=== PATIENT | female | born 1965 | race American Indian/Alaskan Native ===

== ENCOUNTER 2017-07-11 17:14 | Emergency (ER) | payer MEDICAID ==
[2015-05-21 12:21] VITALS: BMI 29.9
--- NOTE | 2017-07-11 18:11 | C.PDOC ---
History Of Present Illness 52 y/o female c/o pain to the left knee, left hip, left shoulder, lower back, and left side of the head for the past 2 days. Patient notes that while walking her foot was caught in a hole, tripped, then fell. Patient notes at first the pain was not as bad, but at this time the pain is unbearable, patient is currently crying in the ER. Patient denies weakness, numbness, or urinary symptoms. Time Seen by Provider: 07/11/17 18:04 Chief Complaint (Nursing): Lower Extremity Problem/Injury History Per: Patient History/Exam Limitations: no limitations Onset/Duration Of Symptoms: Days Current Symptoms Are (Timing): Still Present Severity: Moderate Recent travel outside of the [place]: No Additional History Per: Patient Past Medical History Reviewed: Historical Data, Nursing Documentation, Vital Signs Vital Signs: Last Vital Signs Temp 97.9 F 07/11/17 17:38 Pulse 60 07/11/17 19:34 Resp 18 07/11/17 19:34 BP 115/77 07/11/17 19:34 Pulse Ox 98 07/11/17 20:48 - Medical History PMH: Anxiety, Arthritis, Asthma, HTN, Hypercholesterolemia, Malignancy (THROAT CANCER) Denies: Chronic Kidney Disease Surgical History: Cholecystectomy - [facility] Procedures CLOSED [ENDOSCOPIC] BIOPSY OF LARYNX (01/24/14) CLOSED [NEEDLE] BIOPSY OF TONGUE (01/24/14) INSERTION OF TOTALLY IMPLANTABLE VASC ACCESS DEVIC (10/03/13) TEMPORARY TRACHEOSTOMY (08/23/13) THORAX SFT TISS XRAY NEC (10/03/13) Family History: States: Unknown Family Hx - Social History Hx Tobacco Use: Yes Hx Alcohol Use: No Hx Substance Use: No - Immunization History Hx Tetanus Toxoid Vaccination: No Hx Influenza Vaccination: No Hx Pneumococcal Vaccination: No Review Of Systems Except As Marked, All Systems Reviewed And Found Negative. Genitourinary: Negative for: Frequency, Incontinence Musculoskeletal: Positive for: Shoulder Pain (left), Back Pain (lower), Leg Pain (left knee), Other (left hip and left side of head) Neurological: Negative for: Weakness, Numbness Physical Exam - Physical Exam Appears: Non-toxic, In Acute Distress (Crying due to pain) Skin: Warm, Dry Head: Normacephalic, Tenderness (Left side of the head) Back: No Vertebral Tenderness, Paraspinal Tenderness (lumbar area) Extremity: Tenderness (Left knee, left hip, left shoulder), Capillary Refill (< 2secs), No Deformity, Other (healing abrasion to the left knee) Neurological/Psych: Oriented x3 Gait: Steady ED Course And Treatment O2 Sat by Pulse Oximetry: 98 Pulse Ox Interpretation: Normal - CT Scan/US Head CT Other Rad Studies (CT/US): Read By Radiologist, Radiology Report Reviewed CT/US Interpretation: Accession No. : [id number]. Patient Name / ID : LUDMILA VILLALOBOS / [id number]. Exam Date : 07/11/2017 19:01:22 ( Approved ). Study Comment : Sex / Age : F / 52Y. Creator : Harvinder Laguerre MD. Dictator : Spooling Operator : Prosecuting Attorney : Harvinder Laguerre MD. Approver2 : Report Date : 07/11/2017 19:51:00. My Comment : . [facility] Division of Radiology. [address] [place] [address]. Tel. no. . . . Patient Name: GRISELDA KEYS . Pt. Address: [address] [place] [address]. Rec #: [id number]. [place] [address]: Jaimie Rdz PA-C. Pt Order Location: [facility] : 1965 Female Age: 52 Order #: [id number]. Reason for exam: fall. . . . . . CT Scan. . . HEAD W/O CONTRAST Exam Date: 07/11/17. . This imaging exam was performed at [facility]. EXAM: CT Head Without Intravenous Contrast. . CLINICAL HISTORY: 52 years old, female; Injury or trauma; Fall; Initial encounter; Concussion /. head injury; Without loss of consciousness; Injury date: 07/09/17. . TECHNIQUE: Axial computed tomography images of the head/brain without intravenous. contrast. All CT scans at this facility use one or more dose reduction. techniques, viz.: automated exposure control; ma/ kV adjustment per patient size. (including targeted exams where dose is matched to indication; i.e. head); or. iterative reconstruction technique. . COMPARISON: No relevant prior studies available. . FINDINGS: Brain: No intracranial hemorrhage. No mass. No edema. Ventricles: No hydrocephalus. Bones/joints: No acute fracture. Soft tissues: Unremarkable. Sinuses: Scattered minimal to mild mucosal thickening. Mastoid air cells: No mastoid effusion. Orbits: Unremarkable as visualized. . IMPRESSION: 1. No intracranial hemorrhage. 2. Incidental/non-acute findings are described above. . Dictated By: Harvinder Laguerre MD. Dictated Date/Time: 07/11/171950. Signed By: Harvinder Laguerre MD. Date Signed: 07/11/171950. Transcribed By: [facility]. Transcribe Date/Time: 07/11/171950 Progress Note: TD IM, Percocet po ordered. XRAY of the left knee, left hip, left shoulder, and LS spine, CT Head were done in ED and w/o acute finding. On re-evaluation patient is ambulatory, in no distress, verbalized improvement of pain and is stable to be d/c home with PMD follow up. Disposition - Disposition Disposition: HOME/ ROUTINE Disposition Time: 20:45 Condition: STABLE Additional Instructions: Follow up with your PMD within 1-2 days. Return to ED if feel worse. Prescriptions: oxyCODONE/Acetaminophen [Percocet 5/325 mg Tab] 1 tab PO QID PRN #20 tab PRN Reason: Pain Instructions: Head Injury (ED), Contusion in Adults (ED) Forms: [facility] (Mauritanian) - Clinical Impression Clinical Impression: Multiple contusions, Minor head injury - Scribe Statement The provider has reviewed the documentation as recorded by the Scribe Palomo hawthorne All medical record entries made by the Scribe were at my direction and personally dictated by me. I have reviewed the chart and agree that the record accurately reflects my personal performance of the history, physical exam, medical decision making, and the department course for this patient. I have also personally directed, reviewed, and agree with the discharge instructions and disposition.
[2017-07-11 18:15] VITALS: RESP 18; TEMP 97.9
[2017-07-11] MEDS ORDERED: Oxycodone/Acetaminophen 5/325 mg Tab PO STA (18:51)
[2017-07-11] MEDS ORDERED: Oxycodone/Acetaminophen 5/325 mg Tab ONE (18:58)
[2017-07-11 19:34] VITALS: BP 115/77; PULSE 60
--- NOTE | 2017-07-11 19:51 | CT ---
EXAM: CT Head Without Intravenous Contrast CLINICAL HISTORY: 52 years old, female; Injury or trauma; Fall; Initial encounter; Concussion / head injury; Without loss of consciousness; Injury date: 07/09/17 TECHNIQUE: Axial computed tomography images of the head/brain without intravenous contrast. All CT scans at this facility use one or more dose reduction techniques, viz.: automated exposure control; ma/kV adjustment per patient size (including targeted exams where dose is matched to indication; i.e. head); or iterative reconstruction technique. COMPARISON: No relevant prior studies available. FINDINGS: Brain: No intracranial hemorrhage. No mass. No edema. Ventricles: No hydrocephalus. Bones/joints: No acute fracture. Soft tissues: Unremarkable. Sinuses: Scattered minimal to mild mucosal thickening. Mastoid air cells: No mastoid effusion. Orbits: Unremarkable as visualized. IMPRESSION: 1. No intracranial hemorrhage. 2. Incidental/non-acute findings are described above.
[2017-07-11 20:48] VITALS: O2SAT 98
--- NOTE | 2017-07-12 14:31 | RAD ---
PROCEDURE: Left shoulder dated 07/11/2017. HISTORY: fall COMPARISON: Comparison made with CT scan chest dated 01/24/2014. FINDINGS: BONES: No evidence of acute displaced fracture nor dislocation. The osseous structures appear intact. JOINTS: Very minor degenerative changes left acromioclavicular and glenohumeral joints. SOFT TISSUES: There are no abnormal soft tissue calcifications. No radiopaque foreign body seen. OTHER FINDINGS: None. IMPRESSION: No evidence of acute displaced fracture nor dislocation. Minor DJD.
--- NOTE | 2017-07-12 16:04 | RAD ---
PROCEDURE: Left Hip X-ray Radiographs. HISTORY: fall COMPARISON: None. FINDINGS: BONES: No evidence of acute displaced fracture nor dislocation. The osseous structures appear intact. . JOINTS: Degenerative osteoarthritis both hip joints right greater than left. Enthesophyte formation seen along the lateral margins of the pelvis and superior margins of the greater trochanters. Ormal. SOFT TISSUES: Multiple tiny pelvic calcifications are present likely representing calcified pelvic phleboliths. OTHER FINDINGS: Degenerative spondylosis lumbosacral spine IMPRESSION: No acute displaced fracture nor dislocation. DJD both hip joints right greater than left
--- NOTE | 2017-07-12 16:05 | RAD ---
PROCEDURE: Left Knee Radiographs. HISTORY: Pain. COMPARISON: None. FINDINGS: BONES: No evidence of acute displaced fracture nor dislocation. . JOINTS: Joint spaces relatively preserved. Prominent enthesophyte seen arising from the anterior superior margin of the patella. There may also be tiny anterior inferior patella enthesophyte formation as well Suspect trace suprapatellar joint effusion JOINT EFFUSION: None. OTHER FINDINGS: None. IMPRESSION: No evidence of acute displaced fracture nor dislocation. Questionable trace joint effusion. Patella enthesophyte formation as above
--- NOTE | 2017-07-12 16:08 | RAD ---
PROCEDURE: Radiographs of the Lumbar Spine. HISTORY: Status post fall COMPARISON: No prior. FINDINGS: BONES: No evidence of acute compression fractures no retropulsed fragments. Vertebral bodies exhibit relatively normal stature. Vertebral bodies and facets normally aligned. DISC SPACES: Minor multilevel disc space narrowing more so along the posterior disc margins. Small marginal anterolateral osteophyte formation. Facets are hypertrophic L5-S1 through the L2-L3 levels in decreasing order of severity. Note also made of mild degenerative spondylosis of the lower thoracic spine. OTHER FINDINGS: Distended loops of bowel of present. Clinical correlation recommended. Metallic clips right upper quadrant of the abdomen consistent with prior cholecystectomy. IMPRESSION: No acute fractures. Mild multilevel degenerative spondylosis. Distended loops of bowel. Clinical correlation recommended.
== END 2017-07-11 20:54 | disposition home or self-care (01) ==
LOC: C.ER 17:14
DX: S09.90XA Unspecified injury of head, initial encounter (principal); S80.02XA Contusion of left knee, initial encounter; W01.0XXA Fall on same level from slipping, tripping and stumbling without subsequent striking against object, initial encounter; Y92.89 Other specified places as the place of occurrence of the external cause

== ENCOUNTER 2017-08-10 17:49 | Inpatient (IN) | payer MEDICAID ==
[2017-08-10 18:00] VITALS: BMI 28.1
[2017-08-10] MEDS ORDERED: Sodium Chloride 0.9% 1,000 ML IV STA (18:10)
--- NOTE | 2017-08-10 18:12 | C.PDOC ---
History Of Present Illness 52 y/o F c PMHx HTN, throat cancer s/p chemo/radiation, arthritis p/w abdominal pain x 1 week. Pain is diffuse, severe, intermittent, nonradiating, associated with vomiting and diarrhea. States has seen blood in vomit on initial days and black stool. Also reports subjective fever for initial days, now gone. Denies chest pain, dyspnea, dysuria. Time Seen by Provider: 08/10/17 18:05 Chief Complaint (Nursing): GI Problem Past Medical History Vital Signs: Last Vital Signs Temp 98.6 F 08/10/17 18:00 Pulse 96 H 08/10/17 20:21 Resp 18 08/10/17 20:21 BP 171/82 H 08/10/17 20:21 Pulse Ox 98 08/10/17 21:34 - Medical History PMH: Anxiety, Arthritis, Asthma, Depression, HTN, Hypercholesterolemia, Malignancy (THROAT CANCER) Denies: Chronic Kidney Disease Surgical History: Cholecystectomy - [facility] Procedures CLOSED [ENDOSCOPIC] BIOPSY OF LARYNX (01/24/14) CLOSED [NEEDLE] BIOPSY OF TONGUE (01/24/14) INSERTION OF TOTALLY IMPLANTABLE VASC ACCESS DEVIC (10/03/13) TEMPORARY TRACHEOSTOMY (08/23/13) THORAX SFT TISS XRAY NEC (10/03/13) Family History: States: No Known Family Hx - Social History Hx Tobacco Use: Yes Hx Alcohol Use: No Hx Substance Use: No - Immunization History Hx Tetanus Toxoid Vaccination: Yes Hx Influenza Vaccination: Yes Hx Pneumococcal Vaccination: Yes Review Of Systems Except As Marked, All Systems Reviewed And Found Negative. Cardiovascular: Negative for: Chest Pain Respiratory: Negative for: Shortness of Breath Physical Exam - Physical Exam Additional Physical Exam Comments: Gen: No acute distress. Head: Normocephalic, atraumatic. Eyes: PERRL. ENT: Moist mucous membranes. Neck: Supple. Chest: No tenderness. CV: Regular rate. Radial pulses 2+ bilaterally. Resp: Clear to auscultation bilaterally. Abd: Soft, Diffuse tenderness. Rectal: Dark stool, hemorrhoids, non robust Extremities: No swelling or tenderness. Skin: No rash. Neuro: Alert, no focal deficit. ED Course And Treatment - Laboratory Results Result Diagrams: 08/10/17 21:29 08/10/17 18:51 O2 Sat by Pulse Oximetry: 98 Medical Decision Making Medical Decision Making: EKG NSR 75 bpm, no ST elevations, T wave inversions. CXR no acute disease. IMPRESSION: 1. Mild wall thickening involving the descending and rectosigmoid colon. Correlate for infectious or inflammatory enteritis. 2. Left lower lobe pulmonary nodule measuring 4 mm. For low-risk patients, no follow-up is necessary. For high-risk patients (smoking history or other known risk factors) an optional chest CT at 12 months could be performed. Disposition Discussed With DrPato: Clark Renee Doctor Will See Patient In The: ED - Disposition Disposition: HOSPITALIZED Disposition Time: 21:49 Condition: GUARDED Forms: [facility] (Yakut) - Clinical Impression Clinical Impression: Gastrointestinal hemorrhage
[2017-08-10 19:07] LABS: ALKALINE PHOSPHATASE 79 U/L (38-126); ALT/SGPT 24 U/L (9-52); AST/SGOT 14 U/L (14-36); BILIRUBIN,TOTAL 0.6 mg/dL (0.2-1.3); BLOOD UREA NITROGEN 10 mg/dL (7-17); CALCIUM 8.1 mg/dl (8.6-10.4); CARBON DIOXIDE 28 mmol/L (22-30); CHLORIDE 100 mmol/L (98-107); GFR AFRICAN-AMERICAN > 60; GLUCOSE,RANDOM 94 mg/dL (65-105); POTASSIUM 3.1 mmol/L (3.6-5.2); SODIUM 134 mmol/L (132-148); TOTAL PROTEIN 6.7 g/dL (6.3-8.3)
[2017-08-10] MEDS ORDERED: Morphine 4 MG/ML VIAL ONE (19:08)
[2017-08-10] MEDS ORDERED: Sodium Chloride 0.9% 1,000 ML ONE ×2 (19:08→22:31)
[2017-08-10 19:09] LABS: RBC URINE 15 /hpf (0-3); URINE BACTERIA RARE (<OCC); URINE BILIRUBIN NEGATIVE (NEGATIVE); URINE BLOOD 1+ (NEGATIVE); URINE COLOR Yellow (YELLOW); URINE GLUCOSE (UA) NORMAL (Normal); URINE KETONE TRACE mg/dL (NEGATIVE); URINE LEUKOCYTE ESTERASE NEG Leu/uL (Negative); URINE PROTEIN NEGATIVE (NEGATIVE); WBC URINE 1 /hpf (0-5)
[2017-08-10] MEDS ORDERED: Iodixanol 320 MG/ML 100 ML BOTTLE IV ONE (20:14)
[2017-08-10 21:35] LABS: BASO # 0.1 K/uL (0.0-0.2); BASO % 1.4 % (0.0-2.0); EOS % 0.3 % (0.0-4.0); HEMATOCRIT 34.4 % (34.0-47.0); LYMPH # 0.9 K/uL (1.0-4.3); LYMPH % 11.3 % (20.0-40.0); MEAN CELL VOLUME 85.7 fL (81.0-99.0); MEAN CORPUSCULAR HGB CONC 33.9 g/dL (33.0-37.0); MEAN PLATELET VOLUME 6.9 fL (7.2-11.7); MONO # 0.7 K/uL (0.0-0.8); MONO % 8.9 % (0.0-10.0); RED CELL DISTRIBUTION WIDTH 13.7 % (11.5-14.5); WHITE BLOOD COUNT 7.7 K/uL (4.8-10.8)
[2017-08-10] MEDS ORDERED: Sodium Chloride 0.9% 1,000 ML IV SCH (22:30)
[2017-08-10] MEDS ORDERED: Albuterol 0.083% Inhal Sol (2.5 mg/3 mL) UD IH PRN (23:30)
[2017-08-10] MEDS ORDERED: Albuterol HFA 90 mcg/actuation (8 g) IH PRN (23:30)
--- NOTE | 2017-08-10 23:49 | CP.PCM.HP ---
Addendum entered and electronically signed by Kwaku Peña DO 08/10/17 23: 54: Infectious Colitis * CT - F/U * Cipro 400 IV Q12 * Metro 500 IV Q8 * Morphine 2 IV Q4 * Zofran 4 IV Q6 * Protonix 40 IV QD * NS @ 120 * Blood culture - F/U HTN * Metoprolol 25 PO QD Hypokalemia * KCl IV 20 1x Anxiety * Zoloft 25 PO QD R. Calf Pain * F/U venous doppler Original Note: <Kwaku Peña - Last Filed: 08/10/17 23:44> History of Present Illness - History of Present Illness History of Present Illness: Medicine H/P CC: Abdominal pain, N/V, Blood in stool and vomit HPI: Patient is a 52F with a PMH of throat cancer, HTN comes to the ED with a CC of abdominal pain for 1 weeks associated with vomiting and diarrhea. She states that she has noted blood in the vomit as well as the stool. She has had multiple episodes daily. It has become progressively worse in the last week. She also feels dizzy. She has not been able to eat in over 1 week. She has been able to keep down fluids. She has severe crampy belly pain. She is also complaining of fever, chills and diaphoresis. Denies Chest pain and SOB. Never had a colonoscopy. Denies sick contacts or recent travel. Has not eaten any food that is abnormal for her. PMD: Ira ROS: Per HPI PMH: HTN, Throat cancer PSH: Port, lap eder, trach FH: Dad/sister/brother of throat cancer; Mom had HTN/stroke SH: 1pack year smoking history. No alcohol, no drugs All: PCN, Dark chocolate, mushrooms Present on Admission - Present on Admission Any Indicators Present on Admission: No Review of Systems - Review of Systems Review of Systems: per hpi Past Patient History - Past Medical History & Family History Past Medical History?: Yes - Past Social History Smoking Status: Light Smoker < 10 Cigarettes Daily - CARDIAC Hx Hypercholesterolemia: Yes Hx Hypertension: Yes - PULMONARY Hx Asthma: Yes - NEUROLOGICAL Hx Neurological Disorder: No - HEENT Hx HEENT Problems: Yes (Throat ca- removed) - RENAL Hx Chronic Kidney Disease: No - ENDOCRINE/METABOLIC Hx Endocrine Disorders: No - HEMATOLOGICAL/ONCOLOGICAL Hx Blood Disorders: Yes Hx Cancer: Yes (Throat 2014) - INTEGUMENTARY Other/Comment: Tracheostoma - MUSCULOSKELETAL/RHEUMATOLOGICAL Hx Arthritis: Yes - GASTROINTESTINAL Hx Gastrointestinal Disorders: Yes Hx Gastroesophageal Reflux: Yes - GENITOURINARY/GYNECOLOGICAL Hx Genitourinary Disorders: No - PSYCHIATRIC Hx Anxiety: Yes Hx Depression: Yes Hx Substance Use: No - SURGICAL HISTORY Hx Cholecystectomy: Yes - ANESTHESIA Hx Anesthesia: Yes Hx Anesthesia Reactions: No Hx Malignant Hyperthermia: No Meds Allergies/Adverse Reactions: Allergies Allergy/AdvReac Type Severity Reaction Status Date / Time shellfish derived Allergy Severe ANAPHYLAXIS Verified 08/10/17 18:00 Penicillins Allergy Intermediate RASH Verified 08/10/17 18:00 dark chocolate Allergy Uncoded 08/10/17 18:00 mushrooms Allergy Uncoded 08/10/17 18:00 Physical Exam - Constitutional Appears: Well, Non-toxic, No Acute Distress - Head Exam Head Exam: ATRAUMATIC, NORMAL INSPECTION, NORMOCEPHALIC - Eye Exam Eye Exam: EOMI Pupil Exam: NORMAL ACCOMODATION - ENT Exam ENT Exam: Mucous Membranes Dry - Respiratory Exam Respiratory Exam: Clear to Auscultation Bilateral, NORMAL BREATHING PATTERN - Cardiovascular Exam Cardiovascular Exam: REGULAR RHYTHM - GI/Abdominal Exam GI & Abdominal Exam: Distended, Normal Bowel Sounds, Soft, Tenderness - Extremities Exam Extremities exam: Positive for: tenderness (R. Calf). Negative for: joint swelling - Neurological Exam Neurological exam: Alert, Oriented x3 - Psychiatric Exam Psychiatric exam: Normal Affect, Normal Mood - Skin Skin Exam: Dry, Intact, Normal Color, Warm Results - Vital Signs Recent Vital Signs: Last Vital Signs Temp 98.5 F 08/10/17 23:06 Pulse 80 08/10/17 23:06 Resp 18 08/10/17 23:06 BP 131/81 08/10/17 23:06 Pulse Ox 95 08/10/17 23:06 - Labs Result Diagrams: 08/10/17 21:29 08/10/17 18:51 Labs: Laboratory Results - last 24 hr 08/10/17 08/10/17 08/10/17 18:51 18:51 18:58 WBC RBC Hgb Hct MCV MCH MCHC RDW Plt Count MPV Neut % (Auto) Lymph % (Auto) Wolfe % (Auto) Eos % (Auto) Baso % (Auto) Neut # Lymph # Wolfe # Eos # Baso # Sodium 134 Potassium 3.1 L Chloride 100 Carbon Dioxide 28 Anion Gap 10 BUN 10 Creatinine 0.5 L Est GFR ( Amer) > 60 Est GFR (Non-Af Amer) > 60 Random Glucose 94 Calcium 8.1 L Total Bilirubin 0.6 AST 14 ALT 24 Alkaline Phosphatase 79 Troponin I < 0.0120 Total Protein 6.7 Albumin 3.4 L Globulin 3.3 Albumin/Globulin Ratio 1.0 Lipase < 10 L Urine Color Yellow Urine Clarity Clear Urine pH 6.0 Ur Specific [place] 1.014 Urine Protein Negative Urine Glucose (UA) Normal Urine Ketones Trace Urine Blood 1+ H Urine Nitrate Negative Urine Bilirubin Negative Urine Urobilinogen 2.0 H Ur Leukocyte Esterase Neg Urine WBC (Auto) 1 Urine RBC (Auto) 15 H Ur Squamous Epith Cells 2 Urine Bacteria Rare Stool Occult Blood Positive H 08/10/17 21:29 WBC 7.7 D RBC 4.02 Hgb 11.6 Hct 34.4 MCV 85.7 D MCH 29.0 MCHC 33.9 RDW 13.7 Plt Count 286 MPV 6.9 L Neut % (Auto) 78.1 H Lymph % (Auto) 11.3 L Wolfe % (Auto) 8.9 Eos % (Auto) 0.3 Baso % (Auto) 1.4 Neut # 6.0 Lymph # 0.9 L Wolfe # 0.7 Eos # 0.0 Baso # 0.1 Sodium Potassium Chloride Carbon Dioxide Anion Gap BUN Creatinine Est GFR ( Amer) Est GFR (Non-Af Amer) Random Glucose Calcium Total Bilirubin AST ALT Alkaline Phosphatase Troponin I Total Protein Albumin Globulin Albumin/Globulin Ratio Lipase Urine Color Urine Clarity Urine pH Ur Specific [place] Urine Protein Urine Glucose (UA) Urine Ketones Urine Blood Urine Nitrate Urine Bilirubin Urine Urobilinogen Ur Leukocyte Esterase Urine WBC (Auto) Urine RBC (Auto) Ur Squamous Epith Cells Urine Bacteria Stool Occult Blood <Clark Renee P - Last Filed: 08/11/17 07:04> Results - Vital Signs Recent Vital Signs: Last Vital Signs Temp 98.5 F 08/10/17 23:06 Pulse 102 H 08/10/17 23:32 Resp 18 08/10/17 23:06 BP 131/81 08/10/17 23:06 Pulse Ox 95 08/10/17 23:06 - Labs Result Diagrams: 08/10/17 21:29 08/10/17 18:51 Labs: Laboratory Results - last 24 hr 08/10/17 08/10/17 08/10/17 18:51 18:51 18:58 WBC RBC Hgb Hct MCV MCH MCHC RDW Plt Count MPV Neut % (Auto) Lymph % (Auto) Wolfe % (Auto) Eos % (Auto) Baso % (Auto) Neut # Lymph # Wolfe # Eos # Baso # Sodium 134 Potassium 3.1 L Chloride 100 Carbon Dioxide 28 Anion Gap 10 BUN 10 Creatinine 0.5 L Est GFR ( Amer) > 60 Est GFR (Non-Af Amer) > 60 Random Glucose 94 Calcium 8.1 L Total Bilirubin 0.6 AST 14 ALT 24 Alkaline Phosphatase 79 Troponin I < 0.0120 Total Protein 6.7 Albumin 3.4 L Globulin 3.3 Albumin/Globulin Ratio 1.0 Lipase < 10 L Urine Color Yellow Urine Clarity Clear Urine pH 6.0 Ur Specific [place] 1.014 Urine Protein Negative Urine Glucose (UA) Normal Urine Ketones Trace Urine Blood 1+ H Urine Nitrate Negative Urine Bilirubin Negative Urine Urobilinogen 2.0 H Ur Leukocyte Esterase Neg Urine WBC (Auto) 1 Urine RBC (Auto) 15 H Ur Squamous Epith Cells 2 Urine Bacteria Rare Stool Occult Blood Positive H 08/10/17 21:29 WBC 7.7 D RBC 4.02 Hgb 11.6 Hct 34.4 MCV 85.7 D MCH 29.0 MCHC 33.9 RDW 13.7 Plt Count 286 MPV 6.9 L Neut % (Auto) 78.1 H Lymph % (Auto) 11.3 L Wolfe % (Auto) 8.9 Eos % (Auto) 0.3 Baso % (Auto) 1.4 Neut # 6.0 Lymph # 0.9 L Wolfe # 0.7 Eos # 0.0 Baso # 0.1 Sodium Potassium Chloride Carbon Dioxide Anion Gap BUN Creatinine Est GFR ( Amer) Est GFR (Non-Af Amer) Random Glucose Calcium Total Bilirubin AST ALT Alkaline Phosphatase Troponin I Total Protein Albumin Globulin Albumin/Globulin Ratio Lipase Urine Color Urine Clarity Urine pH Ur Specific [place] Urine Protein Urine Glucose (UA) Urine Ketones Urine Blood Urine Nitrate Urine Bilirubin Urine Urobilinogen Ur Leukocyte Esterase Urine WBC (Auto) Urine RBC (Auto) Ur Squamous Epith Cells Urine Bacteria Stool Occult Blood Attending/Attestation - Attestation I have personally seen and examined this patient.: Yes I have fully participated in the care of the patient.: Yes I have reviewed all pertinent clinical information: Yes Notes (Text): Assessment * Diarrhea blood in the stool, vomit for about 1 wk, maintained hemoglobin, fever subjective at home, CT diffuse colonic mucous membrane thickness without surrounding inflammation, dd of infectious vs ischemic, unlikely inflammatory * Hypokalemia * H/o throat cancer s/p surg chemo 2014 * Neuropathy post chemo using walker * H/o asthma * Chronic arthritic pain, using nsaid, pt counselled about NSAID use Plan * Empiric abx, stool w/u * potassium replacement * Continue home meds except NSAID * GI eval inpt vs out patient * IVF * See orders for detail.
[2017-08-10] MEDS: Sodium Chloride 0.9% 1,000 ML IV SCH (23:54)
[2017-08-11] MEDS ORDERED: Potassium Chloride 20 mEq/15 ml LIQ UD PO ONE (03:56)
[2017-08-11] MEDS: Ciprofloxacin 400mg/200ml D5W 400 MG/200 ML BAG IVPB SCH ×3 (04:43→22:55)
[2017-08-11] MEDS: metroNIDAZOLE IV 500 mg/100 ml 500 MG/100 ML BAG IVPB SCH ×4 (04:43→21:04)
[2017-08-11] MEDS ORDERED: Tramadol 25 mg PO PRN (04:52)
--- NOTE | 2017-08-11 07:33 | RAD ---
HISTORY: vomiting COMPARISON: Chest radiographs 03/20/2015. FINDINGS: LUNGS: No active pulmonary disease. PLEURA: No significant pleural effusion identified, no pneumothorax apparent. CARDIOVASCULAR: Normal. OSSEOUS STRUCTURES: No significant abnormalities. VISUALIZED UPPER ABDOMEN: Normal. OTHER FINDINGS: None. IMPRESSION: No interval acute cardiopulmonary disease appreciated.
--- NOTE | 2017-08-11 07:34 | CP.PCM.PN ---
Subjective - Date & Time of Evaluation Date of Evaluation: 08/11/17 Time of Evaluation: 05:00 - Subjective Subjective: 20 g angiocath inserted in right EJ for ivf and meds with single attempt, with good flow and return. Objective - Vital Signs/Intake and Output Vital Signs (last 24 hours): Temp Pulse Resp BP Pulse Ox 98.5 F 102 H 18 131/81 95 08/10/17 23:06 08/10/17 23:32 08/10/17 23:06 08/10/17 23:06 08/10/17 23:06 - Medications Medications: Current Medications Acetaminophen (Tylenol 325mg Tab) 650 mg PO Q6 PRN PRN Reason: Fever >100.4 F Albuterol (Ventolin Hfa 90 Mcg/Actuation (8 G)) 90 puff IH Q2 PRN PRN Reason: Shortness of Breath Albuterol Sulfate (Albuterol 0.083% Inhal Opal (2.5 Mg/3 Ml) Ud) 2.5 mg IH Q6 PRN PRN Reason: Shortness of Breath Ciprofloxacin (Cipro) 500 mg PO BID [facility] Last Admin: 08/11/17 05:18 Dose: 500 mg Ciprofloxacin (Cipro 400mg/200ml Dsw) 400 mg in 200 mls @ 133 mls/hr IVPB Q12H [facility] Last Admin: 08/11/17 04:43 Dose: Not Given Metronidazole (Flagyl) 500 mg in 100 mls @ 100 mls/hr IVPB Q8 [facility] Last Admin: 08/11/17 06:49 Dose: 100 mls/hr Sodium Chloride (Sodium Chloride 0.9%) 1,000 mls @ 120 mls/hr IV .Q8H20M [facility] Last Admin: 08/10/17 23:54 Dose: 120 mls/hr Metoprolol Succinate (Toprol Xl) 25 mg PO DAILY [facility] Metronidazole (Flagyl) 500 mg PO Q8 [facility] Last Admin: 08/11/17 06:49 Dose: Not Given Morphine Sulfate (Morphine) 2 mg IVP Q4H PRN PRN Reason: Pain, severe (8-10) Last Admin: 08/10/17 23:52 Dose: 2 mg Ondansetron HCl (Zofran Inj) 4 mg IVP Q6 PRN PRN Reason: Nausea/Vomiting Ondansetron HCl (Zofran Tab) 4 mg PO Q6 [facility] Last Admin: 08/11/17 06:47 Dose: Not Given Pantoprazole Sodium (Protonix Inj) 40 mg IVP DAILY [facility] Pantoprazole Sodium (Protonix Ec Tab) 40 mg PO DAILY [facility] Sertraline HCl (Zoloft) 25 mg PO DAILY [facility] Tramadol HCl (Ultram) 25 mg PO TID PRN PRN Reason: Pain, moderate (4-7) Last Admin: 08/11/17 05:18 Dose: 25 mg - Labs Labs: 08/10/17 21:29 08/10/17 18:51
[2017-08-11] MEDS: Sodium Chloride 0.9% 1,000 ML IV SCH ×3 (08:24→19:56)
--- NOTE | 2017-08-11 09:10 | CP.PCM.PN ---
<Reg Koroma - Last Filed: 08/11/17 14:13> Subjective - Date & Time of Evaluation Date of Evaluation: 08/11/17 Time of Evaluation: 09:07 - Subjective Subjective: PGY1 Medicine Note for Dr. Wilson Patient seen and examined at bedside this morning. Patient refused her blood work this morning. "I have really bad veins and they stuck me over 10 times. No more sticks please." Patient states feels drastically better to compared when she came in but reports mild abdominal discomfort. She had two episodes of diarrhea this morning. She did not notice any bright red blood but stated she "did not really look". Patient reported to another resident that she has had thoughts of suicide. The patient was placed on a one to one. Patient stated that she misunderstood the resident's question and meant to say that she thought about it previously when she lost her father, brother and sister (all to throat cancer) and when she was diagnosed with throat cancer. She stated, "I am not suicidal. If I did not kill myself when I was diagnosed, why would I do it now?" She requested that the one to one be discontinued. Dr. Wilson agreed that the patient did not need the one to one sitter and they were discontinued. Objective - Vital Signs/Intake and Output Vital Signs (last 24 hours): Temp Pulse Resp BP Pulse Ox 98.7 F 59 L 20 128/74 96 08/11/17 07:45 08/11/17 07:45 08/11/17 07:45 08/11/17 07:45 08/11/17 07:45 - Medications Medications: Current Medications Acetaminophen (Tylenol 325mg Tab) 650 mg PO Q6 PRN PRN Reason: Fever >100.4 F Albuterol (Ventolin Hfa 90 Mcg/Actuation (8 G)) 90 puff IH Q2 PRN PRN Reason: Shortness of Breath Albuterol Sulfate (Albuterol 0.083% Inhal Opal (2.5 Mg/3 Ml) Ud) 2.5 mg IH Q6 PRN PRN Reason: Shortness of Breath Ciprofloxacin (Cipro 400mg/200ml Dsw) 400 mg in 200 mls @ 133 mls/hr IVPB Q12H [facility] Last Admin: 08/11/17 04:43 Dose: Not Given Metronidazole (Flagyl) 500 mg in 100 mls @ 100 mls/hr IVPB Q8 [facility] Last Admin: 08/11/17 06:49 Dose: 100 mls/hr Sodium Chloride (Sodium Chloride 0.9%) 1,000 mls @ 120 mls/hr IV .Q8H20M [facility] Last Admin: 08/11/17 08:24 Dose: Not Given Metoprolol Succinate (Toprol Xl) 25 mg PO DAILY [facility] Morphine Sulfate (Morphine) 2 mg IVP Q4H PRN PRN Reason: Pain, severe (8-10) Last Admin: 08/10/17 23:52 Dose: 2 mg Ondansetron HCl (Zofran Inj) 4 mg IVP Q6 PRN PRN Reason: Nausea/Vomiting Ondansetron HCl (Zofran Tab) 4 mg PO Q6 [facility] Last Admin: 08/11/17 06:47 Dose: Not Given Pantoprazole Sodium (Protonix Inj) 40 mg IVP DAILY [facility] Sertraline HCl (Zoloft) 25 mg PO DAILY [facility] Tramadol HCl (Ultram) 25 mg PO TID PRN PRN Reason: Pain, moderate (4-7) Last Admin: 08/11/17 05:18 Dose: 25 mg - Labs Labs: 08/10/17 21:29 08/10/17 18:51 - Constitutional Appears: Non-toxic, No Acute Distress - Head Exam Head Exam: ATRAUMATIC, NORMOCEPHALIC - Eye Exam Eye Exam: EOMI, Normal appearance - ENT Exam ENT Exam: Mucous Membranes Moist - Respiratory Exam Respiratory Exam: Clear to Ausculation Bilateral, NORMAL BREATHING PATTERN. absent: Accessory Muscle Use, Rales, Rhonchi, Wheezes, Respiratory Distress - Cardiovascular Exam Cardiovascular Exam: REGULAR RHYTHM, +S1 - GI/Abdominal Exam GI & Abdominal Exam: Soft, Tenderness (pain worst on right side>midline; minimal to none on left side), Normal Bowel Sounds - Extremities Exam Extremities Exam: absent: Calf Tenderness, Pedal Edema - Neurological Exam Neurological Exam: Alert, Awake, Oriented x3 - Psychiatric Exam Psychiatric exam: Normal Affect, Normal Mood - Skin Skin Exam: Dry, Warm Assessment and Plan - Assessment and Plan (Free Text) Plan: Infectious Colitis * General Surgery consulted, Dr. Wilson, help appreciated * CT 08/11 - Stomach is collapsed and is poorly evaluated. Evaluation of bowel is remarkable for thickening of the benson of the colon from the mid transverse segment down through the sigmoid colon. Sigmoid colon appears most affected. No diverticular changes are appreciated and trace pericolic reaction at the left hemicolon. There is no free air or abscess. There is no ascites appreciated throughout. Findings most likely software support representative of segmental colitis of either infectious or inflammatory causes. Ischemia neoplasm are included in the differential diagnosis but are not favored. Further clinical correlation is advised. * Cipro 400 IV Q12 * Metronidazole 500 IV Q8 * Morphine 2 IV Q4 PRN * Zofran 4 IV Q6 * Protonix 40 IV QD * NS @ 150 * NPO * f/u Blood culture * f/u Urine culture * f/u Stool studies * f/u Surgery recs * NPO, bowel rest * no surgical intervention at this time. hx of HTN * Metoprolol 25 PO QD * continue to monitor Hypokalemia * K 3.1 on repeat morning labs (repleted) * continue to monitor hx of Anxiety * Zoloft 25 PO QD R. Calf Pain * Venous Doppler 08/11/17 - normal, no DVTs b/l Opioid abuse * Patient reported today that she periodically snorts heroin. Most recently, she snorted heroin 08/10, as well as 08/08 and 08/09. * Denies any cocaine or other drug use. Prophylactic Care * PICC line (only IV access is 20g in R EJ) * NPO except meds Case discussed with Dr. Katie Finney Ga PGY1 <Steven Wilson - Last Filed: 08/11/17 15:19> Objective - Vital Signs/Intake and Output Vital Signs (last 24 hours): Temp Pulse Resp BP Pulse Ox 98.7 F 59 L 20 128/74 96 08/11/17 07:45 08/11/17 07:45 08/11/17 07:45 08/11/17 07:45 08/11/17 07:45 - Medications Medications: Current Medications Acetaminophen (Tylenol 325mg Tab) 650 mg PO Q6 PRN PRN Reason: Fever >100.4 F Albuterol (Ventolin Hfa 90 Mcg/Actuation (8 G)) 90 puff IH Q2 PRN PRN Reason: Shortness of Breath Albuterol Sulfate (Albuterol 0.083% Inhal Opal (2.5 Mg/3 Ml) Ud) 2.5 mg IH Q6 PRN PRN Reason: Shortness of Breath Ciprofloxacin (Cipro 400mg/200ml Dsw) 400 mg in 200 mls @ 133 mls/hr IVPB Q12H [facility] Last Admin: 08/11/17 11:20 Dose: 133 mls/hr Metronidazole (Flagyl) 500 mg in 100 mls @ 100 mls/hr IVPB Q8 [facility] Last Admin: 08/11/17 14:20 Dose: 100 mls/hr Sodium Chloride (Sodium Chloride 0.9%) 1,000 mls @ 150 mls/hr IV .Q6H40M [facility] Last Admin: 08/11/17 12:56 Dose: 150 mls/hr Metoprolol Succinate (Toprol Xl) 25 mg PO DAILY [facility] Last Admin: 08/11/17 10:22 Dose: 25 mg Morphine Sulfate (Morphine) 2 mg IVP Q4H PRN PRN Reason: Pain, severe (8-10) Last Admin: 08/11/17 10:21 Dose: 2 mg Ondansetron HCl (Zofran Inj) 4 mg IVP Q6 PRN PRN Reason: Nausea/Vomiting Ondansetron HCl (Zofran Tab) 4 mg PO Q6 [facility] Last Admin: 08/11/17 11:16 Dose: 4 mg Pantoprazole Sodium (Protonix Inj) 40 mg IVP DAILY [facility] Last Admin: 08/11/17 10:21 Dose: 40 mg Sertraline HCl (Zoloft) 25 mg PO DAILY [facility] Last Admin: 08/11/17 10:21 Dose: 25 mg Tramadol HCl (Ultram) 25 mg PO TID PRN PRN Reason: Pain, moderate (4-7) Last Admin: 08/11/17 05:18 Dose: 25 mg - Labs Labs: 08/11/17 11:19 08/11/17 11:19 Attending/Attestation - Attestation I have personally seen and examined this patient.: Yes I have fully participated in the care of the patient.: Yes I have reviewed all pertinent clinical information, including history, physical exam and plan: Yes Notes (Text): 08/11/17 15:19 Medical attending: Patient was seen and examined by me, reviewed the above note by medical safety director and agree. At this moment were continue with the IV Cipro and IV Flagyl. The CT scan returned showing that the benson: As well as the mid transverse segment into the sigmoid area of the colon appeared to be very inflamed and thickened. There was no free air or abscess. However considering its appearance we did ask for surgical evaluation at this moment they've always suggested keeping the patient nothing by mouth at this time given her intravenous fluids. There is also medication for pain control. Her currently pending on cultures at this moment Also the patient was early in the morning placed on one-to-one after there was some concern of potential for the patient to harm herself however after we the patient the patient said that this was a misunderstanding that she was okay and so we've decided to take her off the one-to-one at this time however if need to get always go back to it Thank you very much, Steven Wilson
--- NOTE | 2017-08-11 09:11 | CT ---
PROCEDURE: CT Abdomen and Pelvis with contrast HISTORY: vomiting, abd pain COMPARISON: Abdomen pelvis CT exam with contrast 08/31/2013. TECHNIQUE: Contrast dose: Visipaque 320, 100 cc Radiation dose: Total exam DLP = 546.97 mGy-cm. This CT exam was performed using one or more of the following dose reduction techniques: Automated exposure control, adjustment of the mA and/or kV according to patient size, and/or use of iterative reconstruction technique. FINDINGS: LOWER THORAX: There is a questionable nodule at the left lower lobe in image 19 series 5 for which follow-up CT can be performed in 12 months to demonstrate stability or resolution of this finding. The remaining visualized bases are clear. LIVER: Prior cholecystectomy is evident with slight increase in intrahepatic biliary dilatation, appearing mild. No focal hepatic lesions identified. GALLBLADDER AND BILE DUCTS: Prior cholecystectomy again evident. No prominent intrahepatic biliary duct dilatation once again. PANCREAS: Unremarkable. No gross lesion or ductal dilatation. SPLEEN: Unremarkable. ADRENALS: Unremarkable. No mass. KIDNEYS AND URETERS: Unremarkable. No hydronephrosis. No solid mass. VASCULATURE: Unremarkable. No aortic aneurysm. BOWEL: Stomach is collapsed and is poorly evaluated. Evaluation of bowel is remarkable for thickening of the benson of the colon from the mid transverse segment down through the sigmoid colon. Sigmoid colon appears most affected. No diverticular changes are appreciated and trace pericolic reaction at the left hemicolon. There is no free air or abscess. There is no ascites appreciated throughout. Findings most likely medical service representative of segmental colitis of either infectious or inflammatory causes. Ischemia neoplasm are included in the differential diagnosis but are not favored. Further clinical correlation is advised. APPENDIX: Normal appendix. PERITONEUM: Unremarkable. No free fluid. No free air. LYMPH NODES: Unremarkable. No enlarged lymph nodes. BLADDER: Unremarkable. REPRODUCTIVE: Unremarkable. BONES: No acute fracture. OTHER FINDINGS: None. IMPRESSION: Findings suggestive segmental colitis affecting the mid transverse through distal sigmoid segments without abscess or free. Limited pericolic reaction is seen related to the descending colon. Please see differential diagnosis above. No colonic diverticular disease is identified. No additional acute abdominal or pelvic findings. Prior cholecystectomy again evident with slight increase in intrahepatic biliary dilatation. No radiodense choledocholithiasis. Incidental questionable nodule left base which follow-up chest is advised in 12 months to demonstrate stability or resolution of this finding. Lung rads 2
--- NOTE | 2017-08-11 09:16 | CP.PCM.CON ---
History of Present Illness - History of Present Illness History of Present Illness: Surgical Consult: HPI: 52 year old female with a past medical history of left vocal cord cancer, HTN, anxiety and depression came to the ED with abdominal pain for the past week. She states the pain is located on the lower part of her abdomen and it comes and goes. She states the pain is a cramping pain and it is worse when she tries to eat or drink. She states the pain is currently a 10/10 when she went to take a few sips of her water. She states she has also been vomiting and having diarrhea. The last time she vomited or had a bowel movement was around 6am today and her stool was dark blood in color. She has never had a colonoscopy in the past and this has never occurred in the past. She states the last time she had chemotherapy was in November of 2014 and the last time she had radiation was December of 2014. She also states since she sometimes has thoughts of hurting herself and she usually takes xanax to help with her thoughts of hurting herself and anxiety and she currently is having those thoughts of hurting herself. PMD: Dr. Roth Past Medical History: HTN, Left Vocal Cord malignancy diagnosed in 2013, anxiety , depression Past Surgical History: Port (removed about a month ago), lap eder, trach Family History: Dad/sister/brother of Vocal Cord cancer; Mom passed HTN/ stroke x2 Surgical History: 6 cigarettes per day since 2013 however has not smoked in 21 days. Snorts heroin occasionally last use: once a day for the past 3 days. Denies alcohol use. Medications: Metoprolol, Xanax 1mg BID, Zoloft Allergies: PCN - rash, Dark chocolate- rash, mushrooms- swelling of throat Review of Systems - Constitutional Constitutional: Chills, Fever - Cardiovascular Cardiovascular: absent: Chest Pain, Palpitations - Respiratory Respiratory: absent: Dyspnea - Gastrointestinal Gastrointestinal: Abdominal Pain, Diarrhea, Melena, Nausea, Vomiting - Genitourinary Genitourinary: absent: Dysuria - Musculoskeletal Musculoskeletal: Other (right calf pain) Past Patient History - Past Medical History & Family History Past Medical History?: Yes - Past Social History Smoking Status: Light Smoker < 10 Cigarettes Daily - CARDIAC Hx Hypercholesterolemia: Yes Hx Hypertension: Yes - PULMONARY Hx Asthma: Yes - NEUROLOGICAL Hx Neurological Disorder: No - HEENT Hx HEENT Problems: Yes (Throat ca- removed) - RENAL Hx Chronic Kidney Disease: No - ENDOCRINE/METABOLIC Hx Endocrine Disorders: No - HEMATOLOGICAL/ONCOLOGICAL Hx Blood Disorders: Yes Hx Cancer: Yes (Throat 2014) - INTEGUMENTARY Other/Comment: Tracheostoma - MUSCULOSKELETAL/RHEUMATOLOGICAL Hx Arthritis: Yes - GASTROINTESTINAL Hx Gastrointestinal Disorders: Yes Hx Gastroesophageal Reflux: Yes - GENITOURINARY/GYNECOLOGICAL Hx Genitourinary Disorders: No - PSYCHIATRIC Hx Anxiety: Yes Hx Depression: Yes Hx Substance Use: No - SURGICAL HISTORY Hx Cholecystectomy: Yes - ANESTHESIA Hx Anesthesia: Yes Hx Anesthesia Reactions: No Hx Malignant Hyperthermia: No Meds Allergies/Adverse Reactions: Allergies Allergy/AdvReac Type Severity Reaction Status Date / Time shellfish derived Allergy Severe ANAPHYLAXIS Verified 08/10/17 18:00 Penicillins Allergy Intermediate RASH Verified 08/10/17 18:00 dark chocolate Allergy Uncoded 08/10/17 18:00 mushrooms Allergy Uncoded 08/10/17 18:00 - Medications Medications: Current Medications Acetaminophen (Tylenol 325mg Tab) 650 mg PO Q6 PRN PRN Reason: Fever >100.4 F Albuterol (Ventolin Hfa 90 Mcg/Actuation (8 G)) 90 puff IH Q2 PRN PRN Reason: Shortness of Breath Albuterol Sulfate (Albuterol 0.083% Inhal Opal (2.5 Mg/3 Ml) Ud) 2.5 mg IH Q6 PRN PRN Reason: Shortness of Breath Ciprofloxacin (Cipro 400mg/200ml Dsw) 400 mg in 200 mls @ 133 mls/hr IVPB Q12H [facility] Last Admin: 08/11/17 04:43 Dose: Not Given Metronidazole (Flagyl) 500 mg in 100 mls @ 100 mls/hr IVPB Q8 [facility] Last Admin: 08/11/17 06:49 Dose: 100 mls/hr Sodium Chloride (Sodium Chloride 0.9%) 1,000 mls @ 120 mls/hr IV .Q8H20M [facility] Last Admin: 08/11/17 08:24 Dose: Not Given Metoprolol Succinate (Toprol Xl) 25 mg PO DAILY [facility] Morphine Sulfate (Morphine) 2 mg IVP Q4H PRN PRN Reason: Pain, severe (8-10) Last Admin: 08/10/17 23:52 Dose: 2 mg Ondansetron HCl (Zofran Inj) 4 mg IVP Q6 PRN PRN Reason: Nausea/Vomiting Ondansetron HCl (Zofran Tab) 4 mg PO Q6 [facility] Last Admin: 08/11/17 06:47 Dose: Not Given Pantoprazole Sodium (Protonix Inj) 40 mg IVP DAILY [facility] Sertraline HCl (Zoloft) 25 mg PO DAILY [facility] Tramadol HCl (Ultram) 25 mg PO TID PRN PRN Reason: Pain, moderate (4-7) Last Admin: 08/11/17 05:18 Dose: 25 mg Physical Exam - Constitutional Appears: In Acute Distress - Head Exam Head Exam: ATRAUMATIC, NORMAL INSPECTION - Eye Exam Eye Exam: EOMI, Normal appearance - ENT Exam ENT Exam: Mucous Membranes Moist - Respiratory Exam Respiratory Exam: Clear to Auscultation Bilateral, NORMAL BREATHING PATTERN - GI/Abdominal Exam GI & Abdominal Exam: Guarding, Normal Bowel Sounds, Soft, Tenderness (right upper quadrant, middle, and lower abdomen). absent: Distended, Firm - Extremities Exam Extremities exam: Positive for: calf tenderness (right lower leg tenderness). Negative for: joint swelling, pedal edema - Neurological Exam Neurological exam: Alert, Oriented x3 - Psychiatric Exam Psychiatric exam: Anxious, Suicidal Ideation - Skin Skin Exam: Dry, Intact, Normal Color, Warm Results - Vital Signs Recent Vital Signs: Last Vital Signs Temp 98.7 F 08/11/17 07:45 Pulse 59 L 08/11/17 07:45 Resp 20 08/11/17 07:45 BP 128/74 08/11/17 07:45 Pulse Ox 96 08/11/17 07:45 - Labs Result Diagrams: 08/10/17 21:29 08/10/17 18:51 Labs: Laboratory Results - last 24 hr 08/10/17 08/10/17 08/10/17 18:51 18:51 18:58 WBC RBC Hgb Hct MCV MCH MCHC RDW Plt Count MPV Neut % (Auto) Lymph % (Auto) [place] % (Auto) Eos % (Auto) Baso % (Auto) Neut # Lymph # [place] # Eos # Baso # Sodium 134 Potassium 3.1 L Chloride 100 Carbon Dioxide 28 Anion Gap 10 BUN 10 Creatinine 0.5 L Est GFR ( Amer) > 60 Est GFR (Non-Af Amer) > 60 Random Glucose 94 Calcium 8.1 L Total Bilirubin 0.6 AST 14 ALT 24 Alkaline Phosphatase 79 Troponin I < 0.0120 Total Protein 6.7 Albumin 3.4 L Globulin 3.3 Albumin/Globulin Ratio 1.0 Lipase < 10 L Urine Color Yellow Urine Clarity Clear Urine pH 6.0 Ur Specific [place] 1.014 Urine Protein Negative Urine Glucose (UA) Normal Urine Ketones Trace Urine Blood 1+ H Urine Nitrate Negative Urine Bilirubin Negative Urine Urobilinogen 2.0 H Ur Leukocyte Esterase Neg Urine WBC (Auto) 1 Urine RBC (Auto) 15 H Ur Squamous Epith Cells 2 Urine Bacteria Rare Stool Occult Blood Positive H 08/10/17 21:29 WBC 7.7 D RBC 4.02 Hgb 11.6 Hct 34.4 MCV 85.7 D MCH 29.0 MCHC 33.9 RDW 13.7 Plt Count 286 MPV 6.9 L Neut % (Auto) 78.1 H Lymph % (Auto) 11.3 L [place] % (Auto) 8.9 Eos % (Auto) 0.3 Baso % (Auto) 1.4 Neut # 6.0 Lymph # 0.9 L [place] # 0.7 Eos # 0.0 Baso # 0.1 Sodium Potassium Chloride Carbon Dioxide Anion Gap BUN Creatinine Est GFR ( Amer) Est GFR (Non-Af Amer) Random Glucose Calcium Total Bilirubin AST ALT Alkaline Phosphatase Troponin I Total Protein Albumin Globulin Albumin/Globulin Ratio Lipase Urine Color Urine Clarity Urine pH Ur Specific [place] Urine Protein Urine Glucose (UA) Urine Ketones Urine Blood Urine Nitrate Urine Bilirubin Urine Urobilinogen Ur Leukocyte Esterase Urine WBC (Auto) Urine RBC (Auto) Ur Squamous Epith Cells Urine Bacteria Stool Occult Blood Assessment & Plan - Assessment and Plan (Free Text) Assessment: 52 year old female with a past medical history of left vocal cord cancer, HTN, anxiety and depression came to the ED with abdominal pain for the past week. NPO Bowel Rest Recommend GI consult Continue antibiotics Trend H/H Recommend Psych Consult due to thoughts of hurting herself - Patient placed on 1:1 observation No surgical intervention needed at this time. Gladys Goss PGY-1
[2017-08-11] MEDS ORDERED: Pantoprazole 40 mg EC Tab PO SCH ×2 (10:00)
[2017-08-11] MEDS: Metoprolol Succinate 25 mg XL Tab PO SCH (10:22)
--- NOTE | 2017-08-11 11:15 | VASCLAB ---
PROCEDURE: Right Lower Extremity Venous Duplex Exam. HISTORY: calf pain PRIORS: None. TECHNIQUE: Right common femoral, femoral, popliteal and posterior tibial, peroneal and great saphenous veins were evaluated. Flow was assessed with color Doppler, compressibility, assessment of phasic flow and augmentation response. Report prepared by FELICITA Stone FINDINGS: RIGHT: 1. Common Femoral Vein: 1.1. Compressibility - Fully compressible: Thrombus - None: Flow - Phasic: Augmentation -Normal: Reflux - None. 2. Femoral Vein: 2.1. Compressibility - Fully compressible: Thrombus - None: Flow - Phasic: Augmentation -Normal: Reflux - None. 3. Popliteal Vein: 3.1. Compressibility - Fully compressible: Thrombus - None: Flow - Phasic: Augmentation -Normal: Reflux - None. 4. Posterior Tibial Vein: 4.1. Compressibility - Fully compressible: Thrombus - None: Flow - Phasic: Augmentation -Normal: Reflux - None. 5. Peroneal Vein: 5.1. Compressibility - Fully compressible: Thrombus - None: Flow - Phasic: Augmentation -Normal: Reflux - None. 6. Great Saphenous Vein: 6.1. Compressibility - Fully compressible: Thrombus -None: Flow - Phasic: Augmentation - Normal: Reflux - None. OTHER FINDINGS: IMPRESSION: No evidence of deep or superficial vein thrombosis of the right lower extremity with excellent venous flow. Normal valve function noted of the right side. Normal venous flow noted in the left common femoral vein.
[2017-08-11 11:27] LABS: BASO % 0.7 % (0.0-2.0); EOS % 0.1 % (0.0-4.0); HEMATOCRIT 34.2 % (34.0-47.0); LYMPH # 0.8 K/uL (1.0-4.3); LYMPH % 14.6 % (20.0-40.0); MEAN CELL VOLUME 86.7 fL (81.0-99.0); MEAN CORPUSCULAR HEMOGLOBIN 29.7 pg (27.0-31.0); MEAN CORPUSCULAR HGB CONC 34.2 g/dL (33.0-37.0); MONO # 0.4 K/uL (0.0-0.8); MONO % 7.2 % (0.0-10.0); RED CELL DISTRIBUTION WIDTH 13.7 % (11.5-14.5); WHITE BLOOD COUNT 5.3 K/uL (4.8-10.8)
[2017-08-11 11:46] LABS: ALKALINE PHOSPHATASE 81 U/L (38-126); ALT/SGPT 20 U/L (9-52); AST/SGOT 13 U/L (14-36); BILIRUBIN,TOTAL 0.7 mg/dL (0.2-1.3); BLOOD UREA NITROGEN 5 mg/dL (7-17); CALCIUM 7.9 mg/dl (8.6-10.4); CARBON DIOXIDE 26 mmol/L (22-30); CHLORIDE 102 mmol/L (98-107); GFR AFRICAN-AMERICAN > 60; GLUCOSE,RANDOM 85 mg/dL (65-105); POTASSIUM 3.3 mmol/L (3.6-5.2); SODIUM 137 mmol/L (132-148); TOTAL PROTEIN 6.4 g/dL (6.3-8.3)
[2017-08-11] MEDS ORDERED: Potassium Chloride 20 mEq ER Tab PO STA (13:11)
--- NOTE | 2017-08-11 22:20 | CARD ---
APPROVED REPORT EKG Measurement Heart [id number] <Conclusion> Normal sinus rhythm Nonspecific T wave abnormality Abnormal ECG
[2017-08-12] MEDS: Sodium Chloride 0.9% 1,000 ML IV SCH ×4 (02:00→21:12)
[2017-08-12] MEDS: metroNIDAZOLE IV 500 mg/100 ml 500 MG/100 ML BAG IVPB SCH ×3 (06:16→21:48)
[2017-08-12] MEDS: Metoprolol Succinate 25 mg XL Tab PO SCH (09:00)
--- NOTE | 2017-08-12 09:11 | CP.PCM.PN ---
Subjective - Date & Time of Evaluation Date of Evaluation: 08/12/17 Time of Evaluation: 07:00 - Subjective Subjective: Surgical Progress Note: Patient was seen and examined at bedside in the AM. Patient states she continues to have abdominal. She also states the last time she had a bowel movement was only once yesterday and she usually goes twice a day. Objective - Vital Signs/Intake and Output Vital Signs (last 24 hours): Temp Pulse Resp BP Pulse Ox 98.4 F 51 L 20 146/78 96 08/12/17 08:14 08/12/17 08:14 08/12/17 08:14 08/12/17 08:14 08/12/17 08:14 Intake and Output: 08/12/17 08/12/17 06:59 18:59 Intake Total 2200 Balance 2200 - Medications Medications: Current Medications Acetaminophen (Tylenol 325mg Tab) 650 mg PO Q6 PRN PRN Reason: Fever >100.4 F Albuterol (Ventolin Hfa 90 Mcg/Actuation (8 G)) 90 puff IH Q2 PRN PRN Reason: Shortness of Breath Albuterol Sulfate (Albuterol 0.083% Inhal Opal (2.5 Mg/3 Ml) Ud) 2.5 mg IH Q6 PRN PRN Reason: Shortness of Breath Docusate Sodium (Colace) 100 mg PO BID [facility] Last Admin: 08/12/17 09:05 Dose: 100 mg Ciprofloxacin (Cipro 400mg/200ml Dsw) 400 mg in 200 mls @ 133 mls/hr IVPB Q12H [facility] Last Admin: 08/11/17 22:55 Dose: 133 mls/hr Metronidazole (Flagyl) 500 mg in 100 mls @ 100 mls/hr IVPB Q8 [facility] Last Admin: 08/12/17 06:16 Dose: 100 mls/hr Sodium Chloride (Sodium Chloride 0.9%) 1,000 mls @ 150 mls/hr IV .Q6H40M [facility] Last Admin: 08/12/17 09:06 Dose: Not Given Metoprolol Succinate (Toprol Xl) 25 mg PO DAILY [facility] Last Admin: 08/12/17 09:00 Dose: 25 mg Morphine Sulfate (Morphine) 2 mg IVP Q4H PRN PRN Reason: Pain, severe (8-10) Last Admin: 08/12/17 09:01 Dose: 2 mg Ondansetron HCl (Zofran Inj) 4 mg IVP Q6 PRN PRN Reason: Nausea/Vomiting Ondansetron HCl (Zofran Tab) 4 mg PO Q6 [facility] Last Admin: 08/12/17 06:09 Dose: Not Given Pantoprazole Sodium (Protonix Inj) 40 mg IVP DAILY [facility] Last Admin: 08/12/17 09:00 Dose: 40 mg Sertraline HCl (Zoloft) 25 mg PO DAILY [facility] Last Admin: 08/12/17 09:00 Dose: 25 mg Tramadol HCl (Ultram) 25 mg PO TID PRN PRN Reason: Pain, moderate (4-7) Last Admin: 08/11/17 05:18 Dose: 25 mg - Labs Labs: 08/11/17 11:19 08/11/17 11:19 - Constitutional Appears: In Acute Distress - Head Exam Head Exam: ATRAUMATIC, NORMAL INSPECTION - Eye Exam Eye Exam: EOMI, Normal appearance - ENT Exam ENT Exam: Mucous Membranes Moist - Respiratory Exam Respiratory Exam: NORMAL BREATHING PATTERN - Cardiovascular Exam Cardiovascular Exam: REGULAR RHYTHM, +S1, +S2 - GI/Abdominal Exam GI & Abdominal Exam: Soft, Tenderness, Normal Bowel Sounds - Extremities Exam Extremities Exam: Normal Inspection - Neurological Exam Neurological Exam: Alert, Awake, Oriented x3 - Psychiatric Exam Psychiatric exam: Anxious - Skin Skin Exam: Dry, Intact, Normal Color, Warm Assessment and Plan - Assessment and Plan (Free Text) Assessment: 52 year old female with a past medical history of left vocal cord cancer, HTN, anxiety and depression came to the ED with abdominal pain for the past week. NPO - advance as tolerated Bowel Rest Colace 100mg PO BID for constipation No surgical intervention needed at this time. Gladys Goss PGY-1
[2017-08-12] MEDS: Ciprofloxacin 400mg/200ml D5W 400 MG/200 ML BAG IVPB SCH ×2 (10:45→22:58)
--- NOTE | 2017-08-12 11:58 | CP.PCM.PN ---
<Reg Koroma - Last Filed: 08/12/17 11:55> Subjective - Date & Time of Evaluation Date of Evaluation: 08/12/17 Time of Evaluation: 11:55 - Subjective Subjective: PGY1 Medicine Note for Dr. Wilson Patient states she is feeling much better today. She is still nervous to eat anything since she still is experiencing some abdominal discomfort. She requested to have some water but was informed that she will be continued on bowel rest and NPO for the rest of today and will be re-evaluated tomorrow. She stated she has been able to get up and walk around. Her family came to visit yesterday and will be back again today. She has been passing gas and stated she felt like she needed to have a bowel movement. She will attempt later. Patient has no other complaints today. Objective - Vital Signs/Intake and Output Vital Signs (last 24 hours): Temp Pulse Resp BP Pulse Ox 98.4 F 51 L 20 146/78 96 08/12/17 08:14 08/12/17 08:14 08/12/17 08:14 08/12/17 08:14 08/12/17 08:14 Intake and Output: 08/12/17 08/12/17 06:59 18:59 Intake Total 2200 Balance 2200 - Medications Medications: Current Medications Acetaminophen (Tylenol 325mg Tab) 650 mg PO Q6 PRN PRN Reason: Fever >100.4 F Albuterol (Ventolin Hfa 90 Mcg/Actuation (8 G)) 90 puff IH Q2 PRN PRN Reason: Shortness of Breath Albuterol Sulfate (Albuterol 0.083% Inhal Opal (2.5 Mg/3 Ml) Ud) 2.5 mg IH Q6 PRN PRN Reason: Shortness of Breath Docusate Sodium (Colace) 100 mg PO BID [facility] Last Admin: 08/12/17 09:05 Dose: 100 mg Ciprofloxacin (Cipro 400mg/200ml Dsw) 400 mg in 200 mls @ 133 mls/hr IVPB Q12H [facility] Last Admin: 08/12/17 10:45 Dose: 133 mls/hr Metronidazole (Flagyl) 500 mg in 100 mls @ 100 mls/hr IVPB Q8 [facility] Last Admin: 08/12/17 06:16 Dose: 100 mls/hr Sodium Chloride (Sodium Chloride 0.9%) 1,000 mls @ 150 mls/hr IV .Q6H40M [facility] Last Admin: 08/12/17 09:06 Dose: Not Given Metoprolol Succinate (Toprol Xl) 25 mg PO DAILY [facility] Last Admin: 08/12/17 09:00 Dose: 25 mg Morphine Sulfate (Morphine) 2 mg IVP Q4H PRN PRN Reason: Pain, severe (8-10) Last Admin: 08/12/17 09:01 Dose: 2 mg Ondansetron HCl (Zofran Inj) 4 mg IVP Q6 PRN PRN Reason: Nausea/Vomiting Ondansetron HCl (Zofran Tab) 4 mg PO Q6 [facility] Last Admin: 08/12/17 06:09 Dose: Not Given Pantoprazole Sodium (Protonix Inj) 40 mg IVP DAILY [facility] Last Admin: 08/12/17 09:00 Dose: 40 mg Sertraline HCl (Zoloft) 25 mg PO DAILY [facility] Last Admin: 08/12/17 09:00 Dose: 25 mg Tramadol HCl (Ultram) 25 mg PO TID PRN PRN Reason: Pain, moderate (4-7) Last Admin: 08/11/17 05:18 Dose: 25 mg - Labs Labs: 08/11/17 11:19 08/11/17 11:19 - Constitutional Appears: Non-toxic, No Acute Distress - Head Exam Head Exam: ATRAUMATIC, NORMOCEPHALIC - Eye Exam Eye Exam: EOMI, Normal appearance - ENT Exam ENT Exam: Mucous Membranes Moist - Respiratory Exam Respiratory Exam: Clear to Ausculation Bilateral, NORMAL BREATHING PATTERN. absent: Accessory Muscle Use, Rales, Rhonchi, Wheezes, Respiratory Distress - Cardiovascular Exam Cardiovascular Exam: REGULAR RHYTHM, +S1. absent: JVD - GI/Abdominal Exam GI & Abdominal Exam: Guarding (r sided/midline), Soft, Tenderness (r sided/ midline), Normal Bowel Sounds. absent: Distended, Firm, Rigid - Extremities Exam Extremities Exam: Normal Inspection. absent: Calf Tenderness, Pedal Edema - Neurological Exam Neurological Exam: Alert, Awake, CN II-XII Intact, Oriented x3 Neuro motor strength exam: Left Upper Extremity: 5, Right Upper Extremity: 5, Left Lower Extremity: 5, Right Lower Extremity: 5 - Psychiatric Exam Psychiatric exam: Normal Affect, Normal Mood - Skin Skin Exam: Dry, Warm Assessment and Plan - Assessment and Plan (Free Text) Plan: Infectious Colitis * General Surgery consulted, Dr. Wilson, help appreciated * CT 08/11 - Stomach is collapsed and is poorly evaluated. Evaluation of bowel is remarkable for thickening of the benson of the colon from the mid transverse segment down through the sigmoid colon. Sigmoid colon appears most affected. No diverticular changes are appreciated and trace pericolic reaction at the left hemicolon. There is no free air or abscess. There is no ascites appreciated throughout. Findings most likely inside outside sales representative of segmental colitis of either infectious or inflammatory causes. Ischemia neoplasm are included in the differential diagnosis but are not favored. Further clinical correlation is advised. * Cipro 400 IV Q12 * Metronidazole 500 IV Q8 * Morphine 2 IV Q4 PRN * Zofran 4 IV Q6 * Protonix 40 IV QD * NS @ 150 * NPO * procal - <0.05 * f/u Blood culture * Urine culture - negative * Stool studies * Stool occult blood positive * f/u Surgery recs * NPO, bowel rest * no surgical intervention at this time. hx of HTN * Metoprolol 25 PO QD * continue to monitor Hypokalemia * morning labs not drawn due to poor vascular access * continue to monitor hx of Anxiety * Zoloft 25 PO QD R. Calf Pain * Venous Doppler 08/11/17 - normal, no DVTs b/l Opioid abuse * Patient reported today that she periodically snorts heroin. Most recently, she snorted heroin 08/10, as well as 08/08 and 08/09. * Denies any cocaine or other drug use. Prophylactic Care * PICC line (only IV access is 20g in R EJ) * NPO except meds (possible advancement of diet tomorrow morning) Case discussed with Dr. Katie Koroma PGY1 <Steven Wilson - Last Filed: 08/12/17 14:30> Objective - Vital Signs/Intake and Output Vital Signs (last 24 hours): Temp Pulse Resp BP Pulse Ox 98.4 F 51 L 20 146/78 96 08/12/17 08:14 08/12/17 08:14 08/12/17 08:14 08/12/17 08:14 08/12/17 08:14 Intake and Output: 08/12/17 08/12/17 06:59 18:59 Intake Total 2200 Balance 2200 - Medications Medications: Current Medications Acetaminophen (Tylenol 325mg Tab) 650 mg PO Q6 PRN PRN Reason: Fever >100.4 F Albuterol (Ventolin Hfa 90 Mcg/Actuation (8 G)) 90 puff IH Q2 PRN PRN Reason: Shortness of Breath Albuterol Sulfate (Albuterol 0.083% Inhal Opal (2.5 Mg/3 Ml) Ud) 2.5 mg IH Q6 PRN PRN Reason: Shortness of Breath Docusate Sodium (Colace) 100 mg PO BID [facility] Last Admin: 08/12/17 09:05 Dose: 100 mg Ciprofloxacin (Cipro 400mg/200ml Dsw) 400 mg in 200 mls @ 133 mls/hr IVPB Q12H [facility] Last Admin: 08/12/17 10:45 Dose: 133 mls/hr Metronidazole (Flagyl) 500 mg in 100 mls @ 100 mls/hr IVPB Q8 [facility] Last Admin: 08/12/17 14:08 Dose: 100 mls/hr Sodium Chloride (Sodium Chloride 0.9%) 1,000 mls @ 150 mls/hr IV .Q6H40M [facility] Last Admin: 08/12/17 09:06 Dose: Not Given Metoprolol Succinate (Toprol Xl) 25 mg PO DAILY [facility] Last Admin: 08/12/17 09:00 Dose: 25 mg Morphine Sulfate (Morphine) 2 mg IVP Q4H PRN PRN Reason: Pain, severe (8-10) Last Admin: 08/12/17 13:11 Dose: 2 mg Ondansetron HCl (Zofran Inj) 4 mg IVP Q6 PRN PRN Reason: Nausea/Vomiting Ondansetron HCl (Zofran Tab) 4 mg PO Q6 [facility] Last Admin: 08/12/17 06:09 Dose: Not Given Pantoprazole Sodium (Protonix Inj) 40 mg IVP DAILY [facility] Last Admin: 08/12/17 09:00 Dose: 40 mg Sertraline HCl (Zoloft) 25 mg PO DAILY [facility] Last Admin: 08/12/17 09:00 Dose: 25 mg Tramadol HCl (Ultram) 25 mg PO TID PRN PRN Reason: Pain, moderate (4-7) Last Admin: 08/11/17 05:18 Dose: 25 mg - Labs Labs: 08/11/17 11:19 08/11/17 11:19 Attending/Attestation - Attestation I have personally seen and examined this patient.: Yes I have fully participated in the care of the patient.: Yes I have reviewed all pertinent clinical information, including history, physical exam and plan: Yes Notes (Text): 08/12/17 14:30 Medical attending: Patient was seen and examined by me, reviewed the above note by product manager medical device agree with the above. We came and saw the patient today, she reports that the pain has decreased substantially today she was finally able to sleep overnight. As mentioned previously the patient is on Cipro and Flagyl as well as intravenous fluids. Regarding the change those. On exam she still continues to have tenderness with palpation. Currently surgery is not planning on any intervention at this moment. As previously mentioned we consulted surgery after reviewing the CAT scan. Her lactic acid level overnight was stable. She is currently nothing by mouth at this time, if she does okay overnight we' ll consider starting her on a clear liquid diet tomorrow. She did not report any heroine withdrawl symptoms when we asked her today. thank you, Steven Wilson
--- NOTE | 2017-08-12 13:38 | RAD ---
HISTORY: verify right PICC COMPARISON: Portable chest 08/10/2017. FINDINGS: The PICC has been inserted by a right upper extremity approach with the tip turning at the upper right atrium. Retraction approximately 2 cm is advised. LUNGS: No active pulmonary disease. PLEURA: No significant pleural effusion identified, no pneumothorax apparent. CARDIOVASCULAR: Normal. OSSEOUS STRUCTURES: No significant abnormalities. VISUALIZED UPPER ABDOMEN: Surgical clips identified right upper quadrant abdomen. OTHER FINDINGS: None. IMPRESSION: PICC insertion identified in the interval. Tip terminates in the right atrium. Adjustment advised follow by confirmation radiography. No additional interval changes.
[2017-08-13] MEDS: Sodium Chloride 0.9% 1,000 ML IV SCH ×3 (03:26→11:29)
[2017-08-13] MEDS: metroNIDAZOLE IV 500 mg/100 ml 500 MG/100 ML BAG IVPB SCH ×3 (05:23→21:28)
--- NOTE | 2017-08-13 06:53 | CP.PCM.PN ---
<Reg Koroma - Last Filed: 08/13/17 13:17> Subjective - Date & Time of Evaluation Date of Evaluation: 08/13/17 Time of Evaluation: 06:53 - Subjective Subjective: PGY1 Medicine Note for Dr. Wilson Patient seen and examined at bedside this morning. Patient reports that she got a little nauseous last night after having some liquids. She did not vomit. She was able to tolerate liquids this morning and does not have any abdominal pain at this time. Patient had a bowel movement this morning. She reports stool that is more formed compared to when she was admitted but are still loose. She denies any blood in her stool. Patient denies fevers, chills, sob, chest pain or any other complaints at this time. Objective - Vital Signs/Intake and Output Vital Signs (last 24 hours): Temp Pulse Resp BP Pulse Ox 99.7 F H 58 L 20 147/82 98 08/13/17 00:18 08/13/17 00:18 08/13/17 00:18 08/13/17 00:18 08/13/17 00:18 Intake and Output: 08/12/17 08/13/17 18:59 06:59 Intake Total 1100 Balance 1100 - Medications Medications: Current Medications Acetaminophen (Tylenol 325mg Tab) 650 mg PO Q6 PRN PRN Reason: Fever >100.4 F Albuterol (Ventolin Hfa 90 Mcg/Actuation (8 G)) 90 puff IH Q2 PRN PRN Reason: Shortness of Breath Albuterol Sulfate (Albuterol 0.083% Inhal Opal (2.5 Mg/3 Ml) Ud) 2.5 mg IH Q6 PRN PRN Reason: Shortness of Breath Docusate Sodium (Colace) 100 mg PO BID [facility] Last Admin: 08/12/17 18:13 Dose: Not Given Ciprofloxacin (Cipro 400mg/200ml Dsw) 400 mg in 200 mls @ 133 mls/hr IVPB Q12H [facility] Last Admin: 08/12/17 22:58 Dose: 133 mls/hr Metronidazole (Flagyl) 500 mg in 100 mls @ 100 mls/hr IVPB Q8 [facility] Last Admin: 08/13/17 05:23 Dose: 100 mls/hr Sodium Chloride (Sodium Chloride 0.9%) 1,000 mls @ 150 mls/hr IV .Q6H40M [facility] Last Admin: 08/13/17 03:26 Dose: 150 mls/hr Metoprolol Succinate (Toprol Xl) 25 mg PO DAILY [facility] Last Admin: 08/12/17 09:00 Dose: 25 mg Morphine Sulfate (Morphine) 2 mg IVP Q4H PRN PRN Reason: Pain, severe (8-10) Last Admin: 08/13/17 04:32 Dose: 2 mg Ondansetron HCl (Zofran Inj) 4 mg IVP Q6 PRN PRN Reason: Nausea/Vomiting Last Admin: 08/13/17 05:24 Dose: 4 mg Ondansetron HCl (Zofran Tab) 4 mg PO Q6 [facility] Last Admin: 08/13/17 00:34 Dose: Not Given Pantoprazole Sodium (Protonix Inj) 40 mg IVP DAILY [facility] Last Admin: 08/12/17 09:00 Dose: 40 mg Sertraline HCl (Zoloft) 25 mg PO DAILY [facility] Last Admin: 08/12/17 09:00 Dose: 25 mg Tramadol HCl (Ultram) 25 mg PO TID PRN PRN Reason: Pain, moderate (4-7) Last Admin: 08/11/17 05:18 Dose: 25 mg - Labs Labs: 08/11/17 11:19 08/11/17 11:19 - Constitutional Appears: Non-toxic, No Acute Distress - Head Exam Head Exam: ATRAUMATIC, NORMOCEPHALIC - Eye Exam Eye Exam: EOMI, Normal appearance - ENT Exam ENT Exam: Mucous Membranes Moist - Respiratory Exam Respiratory Exam: Clear to Ausculation Bilateral, NORMAL BREATHING PATTERN. absent: Accessory Muscle Use, Rales, Rhonchi, Wheezes, Respiratory Distress - Cardiovascular Exam Cardiovascular Exam: REGULAR RHYTHM, +S1 - GI/Abdominal Exam GI & Abdominal Exam: Soft, Normal Bowel Sounds. absent: Distended, Firm, Guarding, Rigid, Tenderness - Extremities Exam Extremities Exam: Normal Inspection. absent: Calf Tenderness, Pedal Edema - Neurological Exam Neurological Exam: Alert, Awake, Oriented x3 - Psychiatric Exam Psychiatric exam: Normal Affect, Normal Mood - Skin Skin Exam: Dry, Warm Assessment and Plan - Assessment and Plan (Free Text) Plan: Infectious Colitis * General Surgery consulted, Dr. Wilson, help appreciated * CT 08/11 - Stomach is collapsed and is poorly evaluated. Evaluation of bowel is remarkable for thickening of the benson of the colon from the mid transverse segment down through the sigmoid colon. Sigmoid colon appears most affected. No diverticular changes are appreciated and trace pericolic reaction at the left hemicolon. There is no free air or abscess. There is no ascites appreciated throughout. Findings most likely marketing sales representative of segmental colitis of either infectious or inflammatory causes. Ischemia neoplasm are included in the differential diagnosis but are not favored. Further clinical correlation is advised. * CXR 08/12 - PICC insertion identified in the R UE. Tip terminated in the right atrium. * Cipro 400 IV Q12 * Metronidazole 500 IV Q8 * Morphine 2 IV Q4 PRN * Zofran 4 IV Q6 * Protonix 40 IV QD * NS @ 150 decreased to 50mL/hr * procal - <0.05 * Urine culture - negative * Stool studies * Stool occult blood positive * Stool Leukocytes positive * f/u Surgery recs * clear liquid diet, advance as tolerated * no surgical intervention at this time. hx of HTN * Metoprolol 25 PO QD * continue to monitor Hypokalemia * K 3.3 - repleted * continue to monitor hx of Anxiety * Zoloft 25 PO QD R. Calf Pain * Venous Doppler 08/11/17 - normal, no DVTs b/l Opioid abuse * Patient reported today that she periodically snorts heroin. Most recently, she snorted heroin 08/10, as well as 08/08 and 08/09. * Denies any cocaine or other drug use. Prophylactic Care * PICC line (only IV access is 20g in R EJ) * NPO except meds (possible advancement of diet tomorrow morning) Case discussed with Dr. Katie Finney Ga PGY1 <Steven Wilson - Last Filed: 08/13/17 13:45> Objective - Vital Signs/Intake and Output Vital Signs (last 24 hours): Temp Pulse Resp BP Pulse Ox 98.5 F 56 L 20 138/86 95 08/13/17 07:39 08/13/17 12:00 08/13/17 07:39 08/13/17 07:39 08/13/17 07:39 Intake and Output: 08/13/17 08/13/17 06:59 18:59 Intake Total 1200 Balance 1200 - Medications Medications: Current Medications Acetaminophen (Tylenol 325mg Tab) 650 mg PO Q6 PRN PRN Reason: Fever >100.4 F Albuterol (Ventolin Hfa 90 Mcg/Actuation (8 G)) 90 puff IH Q2 PRN PRN Reason: Shortness of Breath Albuterol Sulfate (Albuterol 0.083% Inhal Opal (2.5 Mg/3 Ml) Ud) 2.5 mg IH Q6 PRN PRN Reason: Shortness of Breath Docusate Sodium (Colace) 100 mg PO BID PRN PRN Reason: Constipation Ciprofloxacin (Cipro 400mg/200ml Dsw) 400 mg in 200 mls @ 133 mls/hr IVPB Q12H [facility] Last Admin: 08/13/17 11:29 Dose: 133 mls/hr Metronidazole (Flagyl) 500 mg in 100 mls @ 100 mls/hr IVPB Q8 [facility] Last Admin: 08/13/17 13:25 Dose: 100 mls/hr Sodium Chloride (Sodium Chloride 0.9%) 1,000 mls @ 50 mls/hr IV .Q20H [facility] Last Admin: 08/13/17 11:29 Dose: 50 mls/hr Metoprolol Succinate (Toprol Xl) 25 mg PO DAILY [facility] Last Admin: 08/13/17 09:51 Dose: 25 mg Morphine Sulfate (Morphine) 2 mg IVP Q4H PRN PRN Reason: Pain, severe (8-10) Last Admin: 08/13/17 12:54 Dose: 2 mg Ondansetron HCl (Zofran Inj) 4 mg IVP Q6 PRN PRN Reason: Nausea/Vomiting Last Admin: 08/13/17 09:50 Dose: 4 mg Ondansetron HCl (Zofran Tab) 4 mg PO Q6 [facility] Last Admin: 08/13/17 12:54 Dose: 4 mg Pantoprazole Sodium (Protonix Inj) 40 mg IVP DAILY [facility] Last Admin: 08/13/17 09:51 Dose: 40 mg Potassium Chloride (K-Dur 20 Meq Er Tab) 40 meq PO ONCE ONE Stop: 08/13/17 13:46 Sertraline HCl (Zoloft) 25 mg PO DAILY [facility] Last Admin: 08/13/17 09:51 Dose: 25 mg Tramadol HCl (Ultram) 25 mg PO TID PRN PRN Reason: Pain, moderate (4-7) Last Admin: 08/11/17 05:18 Dose: 25 mg - Labs Labs: 08/13/17 07:30 08/13/17 07:30 Attending/Attestation - Attestation I have personally seen and examined this patient.: Yes I have fully participated in the care of the patient.: Yes I have reviewed all pertinent clinical information, including history, physical exam and plan: Yes Notes (Text): 08/13/17 13:41 Medical attending: Patient was seen and examined by me. Agree with the above note by the resident The patient reported that overnight she did well. She was able to hold down some clear liquid diet. However this morning she again had signifigant nausea and then some abdominal pain. When asked about her diarrea she explained that it was less frequent and non bloody Possible can be discharged tommorow as long as she is tolerating the CLD. We asked her if these symptoms she is having could also be complicated from excessive heroine use and potential withdrawl. She explains she does not use heroine every day thank you Steven Wilson
[2017-08-13 07:56] LABS: BASO % 0.8 % (0.0-2.0); EOS % 0.7 % (0.0-4.0); LYMPH # 0.8 K/uL (1.0-4.3); MEAN CELL VOLUME 86.7 fL (81.0-99.0); MEAN CORPUSCULAR HEMOGLOBIN 29.3 pg (27.0-31.0); MEAN CORPUSCULAR HGB CONC 33.8 g/dL (33.0-37.0); MONO # 0.5 K/uL (0.0-0.8); MONO % 12.5 % (0.0-10.0); NRBC % 0.1 % (0.0-2.0); RED CELL DISTRIBUTION WIDTH 13.4 % (11.5-14.5); WHITE BLOOD COUNT 4.2 K/uL (4.8-10.8)
--- NOTE | 2017-08-13 09:21 | CP.PCM.PN ---
Subjective - Date & Time of Evaluation Date of Evaluation: 08/13/17 Time of Evaluation: 07:00 - Subjective Subjective: Surgical Progress Note: Patient was seen and examined at bedside in the AM. Patient states she had a bowel movement yesterday and no longer feels constipated. However last night she felt nauseated again but would like to try clear liquids this morning and see how she feels. Objective - Vital Signs/Intake and Output Vital Signs (last 24 hours): Temp Pulse Resp BP Pulse Ox 98.5 F 57 L 20 138/86 95 08/13/17 07:39 08/13/17 08:00 08/13/17 07:39 08/13/17 07:39 08/13/17 07:39 Intake and Output: 08/13/17 08/13/17 06:59 18:59 Intake Total 1200 Balance 1200 - Medications Medications: Current Medications Acetaminophen (Tylenol 325mg Tab) 650 mg PO Q6 PRN PRN Reason: Fever >100.4 F Albuterol (Ventolin Hfa 90 Mcg/Actuation (8 G)) 90 puff IH Q2 PRN PRN Reason: Shortness of Breath Albuterol Sulfate (Albuterol 0.083% Inhal Opal (2.5 Mg/3 Ml) Ud) 2.5 mg IH Q6 PRN PRN Reason: Shortness of Breath Docusate Sodium (Colace) 100 mg PO BID [facility] Last Admin: 08/12/17 18:13 Dose: Not Given Ciprofloxacin (Cipro 400mg/200ml Dsw) 400 mg in 200 mls @ 133 mls/hr IVPB Q12H [facility] Last Admin: 08/12/17 22:58 Dose: 133 mls/hr Metronidazole (Flagyl) 500 mg in 100 mls @ 100 mls/hr IVPB Q8 [facility] Last Admin: 08/13/17 05:23 Dose: 100 mls/hr Sodium Chloride (Sodium Chloride 0.9%) 1,000 mls @ 150 mls/hr IV .Q6H40M [facility] Last Admin: 08/13/17 06:57 Dose: Not Given Metoprolol Succinate (Toprol Xl) 25 mg PO DAILY [facility] Last Admin: 08/12/17 09:00 Dose: 25 mg Morphine Sulfate (Morphine) 2 mg IVP Q4H PRN PRN Reason: Pain, severe (8-10) Last Admin: 08/13/17 08:56 Dose: 2 mg Ondansetron HCl (Zofran Inj) 4 mg IVP Q6 PRN PRN Reason: Nausea/Vomiting Last Admin: 08/13/17 00:31 Dose: 4 mg Ondansetron HCl (Zofran Tab) 4 mg PO Q6 [facility] Last Admin: 08/13/17 05:25 Dose: 4 mg Pantoprazole Sodium (Protonix Inj) 40 mg IVP DAILY [facility] Last Admin: 08/12/17 09:00 Dose: 40 mg Sertraline HCl (Zoloft) 25 mg PO DAILY [facility] Last Admin: 08/12/17 09:00 Dose: 25 mg Tramadol HCl (Ultram) 25 mg PO TID PRN PRN Reason: Pain, moderate (4-7) Last Admin: 08/11/17 05:18 Dose: 25 mg - Labs Labs: 08/13/17 07:30 08/11/17 11:19 - Constitutional Appears: No Acute Distress - Head Exam Head Exam: ATRAUMATIC, NORMAL INSPECTION - Eye Exam Eye Exam: EOMI, Normal appearance - ENT Exam ENT Exam: Mucous Membranes Moist - Respiratory Exam Respiratory Exam: NORMAL BREATHING PATTERN - Cardiovascular Exam Cardiovascular Exam: +S1, +S2 - GI/Abdominal Exam GI & Abdominal Exam: Soft, Tenderness (right lower quadrant tenderness ), Normal Bowel Sounds - Extremities Exam Extremities Exam: Normal Inspection. absent: Calf Tenderness, Pedal Edema, Tenderness - Neurological Exam Neurological Exam: Alert, Awake, Oriented x3 - Psychiatric Exam Psychiatric exam: Anxious - Skin Skin Exam: Dry, Intact, Normal Color, Warm Assessment and Plan - Assessment and Plan (Free Text) Assessment: 52 year old female with a past medical history of left vocal cord cancer, HTN, anxiety and depression came to the ED with abdominal pain for the past week. Advanced to Clear Liquids Colace 100mg PO BID as needed for constipation No surgical intervention needed at this time. Gladys Goss PGY-1
[2017-08-13 09:24] LABS: BLOOD UREA NITROGEN 3 mg/dL (7-17); CALCIUM 7.7 mg/dl (8.6-10.4); CARBON DIOXIDE 24 mmol/L (22-30); CHLORIDE 100 mmol/L (98-107); GFR AFRICAN-AMERICAN > 60; GLUCOSE,RANDOM 73 mg/dL (65-105); POTASSIUM 3.3 mmol/L (3.6-5.2); SODIUM 134 mmol/L (132-148)
[2017-08-13] MEDS: Metoprolol Succinate 25 mg XL Tab PO SCH (09:51)
[2017-08-13 10:04] LABS: C DIFF TOXIN A B NEGATIVE (NEGATIVE)
[2017-08-13] MEDS: Ciprofloxacin 400mg/200ml D5W 400 MG/200 ML BAG IVPB SCH ×2 (11:29→22:47)
--- NOTE | 2017-08-13 12:58 | CARD ---
APPROVED REPORT EKG Measurement Heart [id number] DC [id number] <Conclusion> Normal sinus rhythm Normal ECG
[2017-08-13 12:59] LABS: FECAL LEUKOCYTES POSITIVE (NEGATIVE)
[2017-08-13] MEDS ORDERED: Potassium Chloride 20 mEq ER Tab PO ONE (13:45)
[2017-08-14] MEDS: metroNIDAZOLE IV 500 mg/100 ml 500 MG/100 ML BAG IVPB SCH ×2 (05:10→13:02)
[2017-08-14] MEDS: Sodium Chloride 0.9% 1,000 ML IV SCH (07:30)
--- NOTE | 2017-08-14 08:06 | CP.PCM.PN ---
Subjective - Date & Time of Evaluation Date of Evaluation: 08/14/17 Time of Evaluation: 07:00 - Subjective Subjective: Surgical Progress Note: Patient was seen and examined at bedside in the AM. Patient states she is feeling much better today. The last time she vomited was yesterday morning before eating. She later was able to tolerate her liquid diet without nausea or vomiting. She states she also continued to have normal bowel movements. Objective - Vital Signs/Intake and Output Vital Signs (last 24 hours): Temp Pulse Resp BP Pulse Ox 98.7 F 57 L 20 150/88 95 08/14/17 00:15 08/14/17 00:15 08/14/17 00:15 08/14/17 00:15 08/14/17 00:15 - Medications Medications: Current Medications Acetaminophen (Tylenol 325mg Tab) 650 mg PO Q6 PRN PRN Reason: Fever >100.4 F Albuterol (Ventolin Hfa 90 Mcg/Actuation (8 G)) 90 puff IH Q2 PRN PRN Reason: Shortness of Breath Albuterol Sulfate (Albuterol 0.083% Inhal Opal (2.5 Mg/3 Ml) Ud) 2.5 mg IH Q6 PRN PRN Reason: Shortness of Breath Docusate Sodium (Colace) 100 mg PO BID PRN PRN Reason: Constipation Ciprofloxacin (Cipro 400mg/200ml Dsw) 400 mg in 200 mls @ 133 mls/hr IVPB Q12H [facility] Last Admin: 08/13/17 22:47 Dose: 133 mls/hr Metronidazole (Flagyl) 500 mg in 100 mls @ 100 mls/hr IVPB Q8 [facility] Last Admin: 08/14/17 05:10 Dose: 100 mls/hr Sodium Chloride (Sodium Chloride 0.9%) 1,000 mls @ 50 mls/hr IV .Q20H [facility] Last Admin: 08/13/17 11:29 Dose: 50 mls/hr Metoprolol Succinate (Toprol Xl) 25 mg PO DAILY [facility] Last Admin: 08/13/17 09:51 Dose: 25 mg Morphine Sulfate (Morphine) 2 mg IVP Q4H PRN PRN Reason: Pain, severe (8-10) Last Admin: 08/14/17 07:57 Dose: 2 mg Ondansetron HCl (Zofran Inj) 4 mg IVP Q6 PRN PRN Reason: Nausea/Vomiting Last Admin: 08/14/17 02:56 Dose: 4 mg Ondansetron HCl (Zofran Tab) 4 mg PO Q6 [facility] Last Admin: 08/14/17 05:05 Dose: Not Given Pantoprazole Sodium (Protonix Inj) 40 mg IVP DAILY [facility] Last Admin: 08/13/17 09:51 Dose: 40 mg Sertraline HCl (Zoloft) 25 mg PO DAILY [facility] Last Admin: 08/13/17 09:51 Dose: 25 mg Tramadol HCl (Ultram) 25 mg PO TID PRN PRN Reason: Pain, moderate (4-7) Last Admin: 08/11/17 05:18 Dose: 25 mg - Labs Labs: 08/13/17 07:30 08/13/17 07:30 - Constitutional Appears: No Acute Distress - Head Exam Head Exam: ATRAUMATIC, NORMAL INSPECTION - Eye Exam Eye Exam: EOMI, Normal appearance - ENT Exam ENT Exam: Mucous Membranes Moist - Respiratory Exam Respiratory Exam: NORMAL BREATHING PATTERN - GI/Abdominal Exam GI & Abdominal Exam: Soft, Normal Bowel Sounds. absent: Distended, Firm, Guarding, Tenderness - Extremities Exam Extremities Exam: Normal Inspection. absent: Calf Tenderness, Pedal Edema, Tenderness - Neurological Exam Neurological Exam: Alert, Awake, Oriented x3 - Psychiatric Exam Psychiatric exam: Normal Affect, Normal Mood - Skin Skin Exam: Normal Color, Warm Assessment and Plan - Assessment and Plan (Free Text) Assessment: 52 year old female with a past medical history of left vocal cord cancer, HTN, anxiety and depression came to the ED with abdominal pain for the past week. Full Liquids advance diet as tolerated Colace 100mg PO BID as needed for constipation No surgical intervention needed at this time. Gladys Goss PGY-1
[2017-08-14 08:22] VITALS: RESP 18; TEMP 98.1; O2SAT 96
[2017-08-14] MEDS: Metoprolol Succinate 25 mg XL Tab PO SCH (10:26)
[2017-08-14] MEDS: Ciprofloxacin 400mg/200ml D5W 400 MG/200 ML BAG IVPB SCH (12:20)
--- NOTE | 2017-08-14 16:30 | CP.PCM.DIS ---
<Reg Koroma - Last Filed: 08/14/17 16:13> Provider - Provider Date of Admission: 08/10/17 21:48 Attending physician: Steven Wislon DO Consults: Surg Micaela Wilson Time Spent in preparation of Discharge (in minutes): 30 Hospital Course - Lab Results Lab Results: Micro Results 08/12/17 08:30 Stool Ova and Parasite Concentrate Exam - Final 08/12/17 08:30 Stool Stool Culture - Preliminary LACTOSE [employer]EMAN, SUB SELENITE BROTH. 08/10/17 19:28 Urine,Clean Catch Urine Culture - Final No Growth (<1,000 CFU/ML) Most Recent Lab Values WBC 4.2 K/uL (4.8-10.8) L 08/13/17 07:30 RBC 3.70 Mil/uL (3.80-5.20) L 08/13/17 07:30 Hgb 10.8 g/dL (11.0-16.0) L 08/13/17 07:30 Hct 32.0 % (34.0-47.0) L 08/13/17 07:30 MCV 86.7 fL (81.0-99.0) 08/13/17 07:30 MCH 29.3 pg (27.0-31.0) 08/13/17 07:30 MCHC 33.8 g/dL (33.0-37.0) 08/13/17 07:30 RDW 13.4 % (11.5-14.5) 08/13/17 07:30 Plt Count 309 K/uL (130-400) 08/13/17 07:30 MPV 7.0 fL (7.2-11.7) L 08/13/17 07:30 Neut % (Auto) 66.0 % (50.0-75.0) 08/13/17 07:30 Lymph % (Auto) 20.0 % (20.0-40.0) 08/13/17 07:30 [place] % (Auto) 12.5 % (0.0-10.0) H 08/13/17 07:30 Eos % (Auto) 0.7 % (0.0-4.0) 08/13/17 07:30 Baso % (Auto) 0.8 % (0.0-2.0) 08/13/17 07:30 Neut # 2.7 K/uL (1.8-7.0) 08/13/17 07:30 Lymph # 0.8 K/uL (1.0-4.3) L 08/13/17 07:30 [place] # 0.5 K/uL (0.0-0.8) 08/13/17 07:30 Eos # 0.0 K/uL (0.0-0.7) 08/13/17 07:30 Baso # 0.0 K/uL (0.0-0.2) 08/13/17 07:30 Sodium 134 mmol/L (132-148) 08/13/17 07:30 Potassium 3.3 mmol/L (3.6-5.2) L 08/13/17 07:30 Chloride 100 mmol/L (98-107) 08/13/17 07:30 Carbon Dioxide 24 mmol/L (22-30) 08/13/17 07:30 Anion Gap 13 (10-20) 08/13/17 07:30 BUN 3 mg/dL (7-17) L 08/13/17 07:30 Creatinine 0.5 mg/dL (0.7-1.2) L 08/13/17 07:30 Est GFR ( Amer) > 60 08/13/17 07:30 Est GFR (Non-Af Amer) > 60 08/13/17 07:30 Random Glucose 73 mg/dL (65-105) 08/13/17 07:30 Lactic Acid 0.5 mmol/L (0.7-2.1) L 08/11/17 17:10 Calcium 7.7 mg/dl (8.6-10.4) L 08/13/17 07:30 Total Bilirubin 0.7 mg/dL (0.2-1.3) 08/11/17 11:19 AST 13 U/L (14-36) L 08/11/17 11:19 ALT 20 U/L (9-52) 08/11/17 11:19 Alkaline Phosphatase 81 U/L (38-126) 08/11/17 11:19 Troponin I < 0.0120 ng/mL (0.00-0.120) 08/10/17 18:51 Total Protein 6.4 g/dL (6.3-8.3) 08/11/17 11:19 Albumin 3.3 g/dL (3.5-5.0) L 08/11/17 11:19 Globulin 3.1 gm/dL (2.2-3.9) 08/11/17 11:19 Albumin/Globulin Ratio 1.0 (1.0-2.1) 08/11/17 11:19 Lipase < 10 U/L (23-300) L 08/10/17 18:51 Procalcitonin < 0.05 NG/ML (0.19-0.49) L 08/11/17 11:19 Urine Color Yellow (YELLOW) 08/10/17 18:51 Urine Clarity Clear (Clear) 08/10/17 18:51 Urine pH 6.0 (5.0-8.0) 08/10/17 18:51 Ur Specific [place] 1.014 (1.003-1.030) 08/10/17 18:51 Urine Protein Negative mg/dL (NEGATIVE) 08/10/17 18:51 Urine Glucose (UA) Normal mg/dL (Normal) 08/10/17 18:51 Urine Ketones Trace mg/dL (NEGATIVE) 08/10/17 18:51 Urine Blood 1+ (NEGATIVE) H 08/10/17 18:51 Urine Nitrate Negative (NEGATIVE) 08/10/17 18:51 Urine Bilirubin Negative (NEGATIVE) 08/10/17 18:51 Urine Urobilinogen 2.0 mg/dL (0.2-1.0) H 08/10/17 18:51 Ur Leukocyte Esterase Neg Errol/uL (Negative) 08/10/17 18:51 Urine WBC (Auto) 1 /hpf (0-5) 08/10/17 18:51 Urine RBC (Auto) 15 /hpf (0-3) H 08/10/17 18:51 Ur Squamous Epith Cells 2 /hpf (0-5) 08/10/17 18:51 Urine Bacteria Rare (<OCC) 08/10/17 18:51 Urine HCG, Qual Negative (NEGATIVE) 08/11/17 15:25 Stool Occult Blood Positive (NEGATIVE) H 08/10/17 18:58 Stool Leukocytes, Qual Positive (NEGATIVE) H 08/11/17 08:30 C. difficile Ag & Toxin Negative (NEGATIVE) 08/11/17 08:30 Giardia Antigen Not detected (Not Detected) 08/11/17 11:20 - Hospital Course Hospital Course: As per admission documentation, Patient is a 52F with a PMH of throat cancer, HTN comes to the ED with a CC of abdominal pain for 1 weeks associated with vomiting and diarrhea. She states that she has noted blood in the vomit as well as the stool. She has had multiple episodes daily. It has become progressively worse in the last week. She also feels dizzy. She has not been able to eat in over 1 week. She has been able to keep down fluids. She has severe crampy belly pain. She is also complaining of fever, chills and diaphoresis. Denies Chest pain and SOB. Never had a colonoscopy. Denies sick contacts or recent travel. Has not eaten any food that is abnormal for her. Hospital Course Patient was admitted to the hospital on 08/10 for Colitis. General Surgery, Dr. Wilson, was consulted. No surgical intervention was needed. CT 08/11 - Stomach is collapsed and is poorly evaluated. Evaluation of bowel is remarkable for thickening of the benson of the colon from the mid transverse segment down through the sigmoid colon. Sigmoid colon appears most affected. No diverticular changes are appreciated and trace pericolic reaction at the left hemicolon. There is no free air or abscess. There is no ascites appreciated throughout. Findings most likely licensing representative of segmental colitis of either infectious or inflammatory causes. Ischemia neoplasm are included in the differential diagnosis but are not favored. Further clinical correlation is advised. 08/12 - PICC was placed due to poor IV access. CXR 08/12 - PICC insertion identified in the R UE. Tip terminated in the right atrium. Patient hospital course was without complication. She was started on Metroidazole 500mg IV q8h and Cipro 400mg IV q12h. She was placed on bowel rest for two days, then diet was advanced as tolerated. She was able to tolerate a soft, regular diet on the date of discharge. The patient did not experience any nausea or vomiting since 08/12. Patient's diarrhea improved. Patient never had a white count and procal was <0.05. Upon the patient's request, patient was given information about different support groups for her heroin use. Discharge Instructions Patient is to be discharged home per Dr. Wilson. Patient is to follow up with her primary care physician within one week of discharge. If patient does not have a primary care physician, patient is to follow [facility] in [facility] located in the [facility]. If any new or worsening symptoms, please call or go to nearest emergency room. Prescriptions given: Ciprofloxacin 250mg PO q12h Discharge Exam - Head Exam Head Exam: ATRAUMATIC, NORMAL INSPECTION - Eye Exam Eye Exam: EOMI, Normal appearance, PERRL - ENT Exam ENT Exam: Mucous Membranes Moist - Respiratory Exam Respiratory Exam: Clear to PA & Lateral, NORMAL BREATHING PATTERN, UNREMARKABLE. absent: Accessory Muscle Use, Rales, Rhonchi, Wheezes, Respiratory Distress - Cardiovascular Exam Cardiovascular Exam: REGULAR RHYTHM, +S1. absent: JVD - GI/Abdominal Exam GI & Abdominal Exam: Normal Bowel Sounds, Soft, Tenderness, Unremarkable. absent: Distended, Firm, Guarding, Hernia, Rigid - Extremities Exam Extremities exam: normal capillary refill, normal inspection, pedal pulses present - Neurological Exam Neurological exam: Alert, CN II-XII Intact, Normal Gait, Oriented x3 - Psychiatric Exam Psychiatric exam: Normal Affect, Normal Mood - Skin Skin Exam: Dry, Warm Discharge Plan - Discharge Medications Prescriptions: Ciprofloxacin [Cipro] 250 mg PO Q12H #10 tab - Follow Up Plan Condition: GUARDED Disposition: HOME/ ROUTINE Instructions: Ciprofloxacin (By mouth), Gastrointestinal Bleeding (DC), Gastrointestinal Bleeding (GEN), Pneumococcal Vaccine for Adults (DC), Influenza Vaccine (DC), COPD (Chronic Obstructive Pulmonary Disease) (DC), COPD (Chronic Obstructive Pulmonary Disease) (GEN), Acute Nausea and Vomiting (DC), Acute Diarrhea (GEN), Dyspnea (GEN) Additional Instructions: Patient is to be discharged home per Dr. Wilson. Patient is to follow up with her primary care physician within one week of discharge. If patient does not have a primary care physician, patient is to follow up in the [facility] located in the [facility]. If any new or worsening symptoms, please call or go to nearest emergency room. Prescriptions given: Ciprofloxacin 250mg PO q12h Referrals: [facility] [Outside] <Steven Wilson - Last Filed: 08/14/17 18:45> Provider - Provider Date of Admission: 08/10/17 21:48 Attending physician: Steven Wilson DO Hospital Course - Lab Results Lab Results: Micro Results 08/12/17 08:30 Stool Ova and Parasite Concentrate Exam - Final 08/12/17 08:30 Stool Stool Culture - Preliminary LACTOSE FIELD FOREMAN, SUB SELENITE BROTH. 08/10/17 19:28 Urine,Clean Catch Urine Culture - Final No Growth (<1,000 CFU/ML) Most Recent Lab Values WBC 4.2 K/uL (4.8-10.8) L 08/13/17 07:30 RBC 3.70 Mil/uL (3.80-5.20) L 08/13/17 07:30 Hgb 10.8 g/dL (11.0-16.0) L 08/13/17 07:30 Hct 32.0 % (34.0-47.0) L 08/13/17 07:30 MCV 86.7 fL (81.0-99.0) 08/13/17 07:30 MCH 29.3 pg (27.0-31.0) 08/13/17 07:30 MCHC 33.8 g/dL (33.0-37.0) 08/13/17 07:30 RDW 13.4 % (11.5-14.5) 08/13/17 07:30 Plt Count 309 K/uL (130-400) 08/13/17 07:30 MPV 7.0 fL (7.2-11.7) L 08/13/17 07:30 Neut % (Auto) 66.0 % (50.0-75.0) 08/13/17 07:30 Lymph % (Auto) 20.0 % (20.0-40.0) 08/13/17 07:30 [place] % (Auto) 12.5 % (0.0-10.0) H 08/13/17 07:30 Eos % (Auto) 0.7 % (0.0-4.0) 08/13/17 07:30 Baso % (Auto) 0.8 % (0.0-2.0) 08/13/17 07:30 Neut # 2.7 K/uL (1.8-7.0) 08/13/17 07:30 Lymph # 0.8 K/uL (1.0-4.3) L 08/13/17 07:30 [place] # 0.5 K/uL (0.0-0.8) 08/13/17 07:30 Eos # 0.0 K/uL (0.0-0.7) 08/13/17 07:30 Baso # 0.0 K/uL (0.0-0.2) 08/13/17 07:30 Sodium 134 mmol/L (132-148) 08/13/17 07:30 Potassium 3.3 mmol/L (3.6-5.2) L 08/13/17 07:30 Chloride 100 mmol/L (98-107) 08/13/17 07:30 Carbon Dioxide 24 mmol/L (22-30) 08/13/17 07:30 Anion Gap 13 (10-20) 08/13/17 07:30 BUN 3 mg/dL (7-17) L 08/13/17 07:30 Creatinine 0.5 mg/dL (0.7-1.2) L 08/13/17 07:30 Est GFR ( Amer) > 60 08/13/17 07:30 Est GFR (Non-Af Amer) > 60 08/13/17 07:30 Random Glucose 73 mg/dL (65-105) 08/13/17 07:30 Lactic Acid 0.5 mmol/L (0.7-2.1) L 08/11/17 17:10 Calcium 7.7 mg/dl (8.6-10.4) L 08/13/17 07:30 Total Bilirubin 0.7 mg/dL (0.2-1.3) 08/11/17 11:19 AST 13 U/L (14-36) L 08/11/17 11:19 ALT 20 U/L (9-52) 08/11/17 11:19 Alkaline Phosphatase 81 U/L (38-126) 08/11/17 11:19 Troponin I < 0.0120 ng/mL (0.00-0.120) 08/10/17 18:51 Total Protein 6.4 g/dL (6.3-8.3) 08/11/17 11:19 Albumin 3.3 g/dL (3.5-5.0) L 08/11/17 11:19 Globulin 3.1 gm/dL (2.2-3.9) 08/11/17 11:19 Albumin/Globulin Ratio 1.0 (1.0-2.1) 08/11/17 11:19 Lipase < 10 U/L (23-300) L 08/10/17 18:51 Procalcitonin < 0.05 NG/ML (0.19-0.49) L 08/11/17 11:19 Urine Color Yellow (YELLOW) 08/10/17 18:51 Urine Clarity Clear (Clear) 08/10/17 18:51 Urine pH 6.0 (5.0-8.0) 08/10/17 18:51 Ur Specific [place] 1.014 (1.003-1.030) 08/10/17 18:51 Urine Protein Negative mg/dL (NEGATIVE) 08/10/17 18:51 Urine Glucose (UA) Normal mg/dL (Normal) 08/10/17 18:51 Urine Ketones Trace mg/dL (NEGATIVE) 08/10/17 18:51 Urine Blood 1+ (NEGATIVE) H 08/10/17 18:51 Urine Nitrate Negative (NEGATIVE) 08/10/17 18:51 Urine Bilirubin Negative (NEGATIVE) 08/10/17 18:51 Urine Urobilinogen 2.0 mg/dL (0.2-1.0) H 08/10/17 18:51 Ur Leukocyte Esterase Neg Errol/uL (Negative) 08/10/17 18:51 Urine WBC (Auto) 1 /hpf (0-5) 08/10/17 18:51 Urine RBC (Auto) 15 /hpf (0-3) H 08/10/17 18:51 Ur Squamous Epith Cells 2 /hpf (0-5) 08/10/17 18:51 Urine Bacteria Rare (<OCC) 08/10/17 18:51 Urine HCG, Qual Negative (NEGATIVE) 08/11/17 15:25 Stool Occult Blood Positive (NEGATIVE) H 08/10/17 18:58 Stool Leukocytes, Qual Positive (NEGATIVE) H 08/11/17 08:30 C. difficile Ag & Toxin Negative (NEGATIVE) 08/11/17 08:30 Giardia Antigen Not detected (Not Detected) 08/11/17 11:20 Attending/Attestation - Attestation I have personally seen and examined this patient.: Yes I have fully participated in the care of the patient.: Yes I have reviewed all pertinent clinical information, including history, physical exam and plan: Yes Notes (Text): 08/14/17 18:45 Medical attending: Patient was seen and examined by me, agrees the above note by the medical fee clerk. The patient looks very well with INTO the room. She explains to us that she was able to hold down the soft diet that she is on. Somebody did try to give her sample which she said that she didn't feel ready for that but went back to the soft diet without having any problems. She no longer has the diarrhea that she initially had, she said that her stools are much more formed now. She denied having any fevers, denied chills, said that overall she felt well. The patient understands that she's can advance her diet very slowly. We advised her things like bananas, mashed potatoes, pudding, applesauce for example. And then from there she should slowly work her diet. As a precaution we sent her with a small dose of Cipro as well, however we pointed out to her that none of the cultures were positive and she never had a a white blood cell count. It's possible that what she had was a viral illness in origin. Thank you very much, Steven Wilson
[2017-08-14 17:07] VITALS: BP 127/84; PULSE 70
== END 2017-08-14 16:10 | disposition home or self-care (01) | DRG 813 ==
LOC: C.ER 17:49 → C.5S 21:48
PROVIDERS: ADMIT Hospitalist; ATTEND Hospitalist
PROC: 02H633Z Insertion of Infusion Device into Right Atrium, Percutaneous Approach (ICD-10-PCS; principal; 2017-08-12)
DX: A09 Infectious gastroenteritis and colitis, unspecified (principal); E87.6 Hypokalemia; G62.9 Polyneuropathy, unspecified; F11.10 Opioid abuse, uncomplicated; I10 Essential (primary) hypertension; J45.909 Unspecified asthma, uncomplicated; K21.9 Gastro-esophageal reflux disease without esophagitis; Z85.21 Personal history of malignant neoplasm of larynx; Z87.891 Personal history of nicotine dependence; Z90.49 Acquired absence of other specified parts of digestive tract; Z92.21 Personal history of antineoplastic chemotherapy; Z92.3 Personal history of irradiation; E78.00 Pure hypercholesterolemia, unspecified; M79.661 Pain in right lower leg

== ENCOUNTER 2018-10-22 14:33 | Emergency (ER) | payer MEDICAID | END 2018-10-22 17:22 | disposition home or self-care (01) | LOC: C.ER 14:33 ==